=== PATIENT | male | born 1970 | race Caucasian/White ===

== ENCOUNTER 2020-10-30 10:00 | Outpatient (REF) | payer OTHER, SELFPAY ==
[2020-10-30 11:33] LABS: MANUAL DIFF FLAG NO
[2020-10-30 11:49] LABS: Glucose Urine UA NEG (NEG); Leukocyte Esterase Urine NEG (NEG); Nitrite Urine NEG (NEG); Specific Gravity - Urine >= 1.030 (1.005-1.025); Urine Blood NEG (NEG); Urine Ketones 5 MG/DL (NEG); Urine Protein NEG (NEG-TRACE)
[2020-10-30 11:49] LABS: Basophils Absolute Auto 0.1 X10*3/uL (0.0-0.2); Basophils Percent Auto 0.9 % (0-2); Eosinophils Absolute Auto 0.2 X10*3/uL (0.0-0.4); Eosinophils Percent Auto 2.8 % (0-4); Hematocrit 44.4 % (42-52); Hemoglobin 14.9 g/dl (14.0-18.0); Imm Gran Abs Auto 0.02 X10*3/uL (0.00-0.03); Imm Gran Pct Auto 0.3 % (0.0-0.4); Lymphocytes Absolute Auto 1.2 X10*3/uL (1.2-4.9); Lymphocytes Percent Auto 17.8 % (20-40); Mean Corpuscular HGB Conc 33.6 g/dl (31.0-36.0); Mean Corpuscular Hemoglobin 32.3 pg (27.0-33.0); Mean Corpuscular Volume 96.1 fL (80-98); Mean Platelet Volume 10.4 fL (9.4-12.4); Monocytes Absolute Auto 0.5 X10*3/uL (0.1-1.2); Monocytes Percent Auto 7.5 % (2-11); Neutrophils Absolute Auto 4.7 X10*3/uL (2.0-8.3); Neutrophils Percent Auto 70.7 % (45-73); Platelet Count 247 X10*3/uL (160-400); Red Blood Count 4.62 X10*6/uL (4.60-5.80); White Blood Count 6.7 X10*3/uL (4.8-10.8)
[2020-10-30 11:58] LABS: Appearance Urine CLEAR; Color Urine YELLOW
[2020-10-30 12:03] LABS: Alanine Aminotransferase 20 U/L (0-40); Albumin Level 3.9 g/dL (3.5-5.0); Alkaline Phosphatase 79 U/L (39-117); Anion Gap 15 (12-20); Aspartate Amino Transferase 19 U/L (5-37); Bilirubin Total 0.6 mg/dL (0.0-1.0); Blood Urea Nitrogen 21 mg/dL (9-16); Calcium 8.9 mg/dL (8.4-10.2); Carbon Dioxide 29 mmol/L (22-29); Chloride 99 mmol/L (96-108); Cholesterol 199 mg/dL; Estimated Glomerular Filt Rate > 60; Glucose Random 107 mg/dL (60-115); HDL Cholesterol 68 mg/dL; LDL Cholesterol Calculated 116 mg/dl; Potassium 4.7 mmol/l (3.3-5.1); Sodium 138 mmol/L (135-145); Total Protein 6.4 g/dL (6.5-8.0); Triglycerides 75 mg/dL
[2020-10-30 12:11] LABS: Prostate Specific Antigen 0.37 ng/mL (<0.05-4.0)
== END 2020-10-30 10:01 | disposition home or self-care (01) ==
LOC: HO.LAB 10:00
PROVIDERS: PCP Internal Medicine; Visit Provider Internal Medicine
DX: R59.1 Generalized enlarged lymph nodes (principal); M19.90 Unspecified osteoarthritis, unspecified site; I10 Essential (primary) hypertension
CPT/HCPCS: 36415; 80053; 80061; 81003; 84153; 85025

== ENCOUNTER 2021-11-20 10:26 | Outpatient (REF) | payer OTHER, SELFPAY ==
[2021-11-20 10:29] LABS: MANUAL DIFF FLAG NO
[2021-11-20 10:42] LABS: Basophils Absolute Auto 0.1 X10*3/uL (0.0-0.2); Basophils Percent Auto 1.2 % (0-2); Eosinophils Absolute Auto 0.2 X10*3/uL (0.0-0.4); Eosinophils Percent Auto 2.7 % (0-4); Hematocrit 47.8 % (42.0-52.0); Hemoglobin 15.6 g/dl (14.0-18.0); Imm Gran Abs Auto 0.02 X10*3/uL (0.00-0.03); Imm Gran Pct Auto 0.2 % (0.0-0.4); Lymphocytes Absolute Auto 2.4 X10*3/uL (1.2-4.9); Lymphocytes Percent Auto 27.6 % (20-40); Mean Corpuscular HGB Conc 32.6 g/dl (31.0-36.0); Mean Corpuscular Hemoglobin 31.2 pg (27.0-33.0); Mean Corpuscular Volume 95.6 fL (80.0-98.0); Mean Platelet Volume 10.7 fL (9.4-12.4); Monocytes Absolute Auto 0.8 X10*3/uL (0.1-1.2); Monocytes Percent Auto 8.9 % (2-11); Neutrophils Absolute Auto 5.1 x10*3/uL (2.0-8.3); Neutrophils Percent Auto 59.4 % (45-73); Platelet Count 247 X10*3/uL (160-400); Red Cell Distribution Width 12.8 % (11.0-16.0); White Blood Count 8.6 X10*3/uL (4.8-10.8)
[2021-11-20 10:43] LABS: Appearance Urine HAZY; Color Urine YELLOW; Glucose Urine UA NEG (NEG); Leukocyte Esterase Urine NEG (NEG); Nitrite Urine NEG (NEG); PH 6.5 (5.0-8.0); Specific Gravity - Urine 1.025 (1.005-1.025); Urine Blood NEG (NEG); Urine Ketones NEG (NEG); Urine Protein NEG (NEG-TRACE)
[2021-11-20 11:46] LABS: Alanine Aminotransferase 23 U/L (0-40); Albumin Level 3.8 g/dL (3.5-5.0); Alkaline Phosphatase 81 U/L (39-117); Anion Gap 11 (12-20); Aspartate Amino Transferase 24 U/L (5-37); Bilirubin Total 0.7 mg/dL (0.0-1.0); Blood Urea Nitrogen 19 mg/dL (9-16); Calcium 9.3 mg/dL (8.4-10.2); Carbon Dioxide 29 mmol/L (22-29); Chloride 102 mmol/L (96-108); Cholesterol 204 mg/dL; Estimated Glomerular Filt Rate > 60; Glucose Fasting 98 mg/dL (60-99); HDL Cholesterol 61 mg/dL; LDL Cholesterol Calculated 112 mg/dl; Potassium 3.9 mmol/L (3.3-5.1); Sodium 138 mmol/L (135-145); Total Protein 6.3 g/dL (6.5-8.0); Triglycerides 159 mg/dL
[2021-11-20 11:54] LABS: PSA,Total (Free>4and<10) 0.41 ng/mL (0.00-4.00)
== END 2021-11-20 10:27 | disposition home or self-care (01) ==
LOC: HO.LNP 10:26
PROVIDERS: Visit Provider Internal Medicine
DX: Z00.00 Encounter for general adult medical examination without abnormal findings (principal); Z12.5 Encounter for screening for malignant neoplasm of prostate; I10 Essential (primary) hypertension
CPT/HCPCS: 80053; 80061; 81003; 84153; 85025

== ENCOUNTER 2022-09-13 11:26 | Outpatient (REF) | payer OTHER, SELFPAY ==
[2022-09-13 11:29] LABS: MANUAL DIFF FLAG NO
[2022-09-13 11:57] LABS: Appearance Urine Cloudy; Color Urine Yellow; Glucose Urine UA Negative (Negative); Leukocyte Esterase Urine Negative (Negative); Nitrite Urine Negative (Negative); PH 7.5 (5.0-9.0); Urine Blood Negative (Negative); Urine Ketones Negative (Negative); Urine Protein Negative (Neg-Trace)
[2022-09-13 11:59] LABS: Basophils Absolute Auto 0.1 X10*3/uL (0.0-0.2); Basophils Percent Auto 1.4 % (0-2); Eosinophils Absolute Auto 0.3 X10*3/uL (0.0-0.4); Eosinophils Percent Auto 3.2 % (0-4); Hemoglobin 16.1 g/dl (14.0-18.0); Imm Gran Abs Auto 0.03 X10*3/uL (0.00-0.03); Imm Gran Pct Auto 0.4 % (0.0-0.4); Lymphocytes Absolute Auto 2.1 X10*3/uL (1.2-4.9); Lymphocytes Percent Auto 25.5 % (20-40); Mean Corpuscular HGB Conc 33.5 g/dl (31.0-36.0); Mean Corpuscular Hemoglobin 31.8 pg (27.0-33.0); Mean Corpuscular Volume 94.9 fL (80.0-98.0); Mean Platelet Volume 10.7 fL (9.4-12.4); Monocytes Absolute Auto 0.9 X10*3/uL (0.1-1.2); Monocytes Percent Auto 11.2 % (2-11); Neutrophils Absolute Auto 4.7 x10*3/uL (2.0-8.3); Neutrophils Percent Auto 58.3 % (45-73); Platelet Count 278 X10*3/uL (160-400); Red Blood Count 5.06 X10*6/uL (4.60-5.80); Red Cell Distribution Width 12.8 % (11.0-16.0); White Blood Count 8.1 X10*3/uL (4.8-10.8)
[2022-09-13 12:08] LABS: Bacteria Urine None Seen (None Seen); Hyaline Casts Urine 0-2 /LPF (0-2); RBC Urine 0-2 /HPF (0-2); Squamous Epithelial Cell Urine 0-2 /HPF (0-2); WBC Urine 0-5 /HPF (0-5)
[2022-09-13 12:16] LABS: Alanine Aminotransferase 19 U/L (0-40); Albumin Level 3.9 g/dL (3.5-5.0); Alkaline Phosphatase 81 U/L (39-117); Anion Gap 18 (12-20); Aspartate Amino Transferase 20 U/L (5-37); Bilirubin Total 0.5 mg/dL (0.0-1.0); Blood Urea Nitrogen 23 mg/dL (9-16); Calcium 9.2 mg/dL (8.4-10.2); Carbon Dioxide 27 mmol/L (22-29); Chloride 98 mmol/L (96-108); Cholesterol 201 mg/dL; Estimated Glomerular Filt Rate > 60; Glucose Fasting 108 mg/dL (60-99); HDL Cholesterol 61 mg/dL; LDL Cholesterol Calculated 124 mg/dl; Potassium 4.6 mmol/L (3.3-5.1); Sodium 138 mmol/L (135-145); Total Protein 6.5 g/dL (6.5-8.0); Triglycerides 82 mg/dL
[2022-09-13 12:31] LABS: PSA,Total (Free>4and<10) 0.29 ng/mL (0.00-4.00)
== END 2022-09-13 11:27 | disposition home or self-care (01) ==
LOC: HO.LNP 11:26
PROVIDERS: Visit Provider Internal Medicine
DX: Z00.00 Encounter for general adult medical examination without abnormal findings (principal); I10 Essential (primary) hypertension; Z12.5 Encounter for screening for malignant neoplasm of prostate
CPT/HCPCS: 80053; 80061; 81001; 84153; 85025

== ENCOUNTER 2023-09-19 11:47 | Outpatient (REF) | payer OTHER, SELFPAY ==
[2023-09-19 11:50] LABS: MANUAL DIFF FLAG NO
[2023-09-19 11:55] LABS: Appearance Urine Clear; Color Urine Yellow; Glucose Urine UA Negative (Negative); Leukocyte Esterase Urine Negative (Negative); Nitrite Urine Negative (Negative); Specific Gravity - Urine 1.015 (1.005-1.025); Urine Blood Negative (Negative); Urine Ketones Negative (Negative); Urine Protein Negative (Neg-Trace)
[2023-09-19 11:58] LABS: Bacteria Urine None Seen (None Seen); Hyaline Casts Urine 0-2 /LPF (0-2); RBC Urine 0-2 /HPF (0-2); Squamous Epithelial Cell Urine 0-2 /HPF (0-2); WBC Urine 0-5 /HPF (0-5)
[2023-09-19 12:13] LABS: Basophils Absolute Auto 0.1 X10*3/uL (0.0-0.2); Basophils Percent Auto 1.1 % (0-2); Eosinophils Absolute Auto 0.2 X10*3/uL (0.0-0.4); Eosinophils Percent Auto 2.7 % (0-4); Hematocrit 45.4 % (42.0-52.0); Hemoglobin 14.9 g/dl (14.0-18.0); Imm Gran Abs Auto 0.02 X10*3/uL (0.00-0.03); Imm Gran Pct Auto 0.2 % (0.0-0.4); Lymphocytes Absolute Auto 1.9 X10*3/uL (1.2-4.9); Lymphocytes Percent Auto 21.3 % (20-40); Mean Corpuscular HGB Conc 32.8 g/dl (31.0-36.0); Mean Corpuscular Hemoglobin 31.8 pg (27.0-33.0); Mean Platelet Volume 10.2 fL (9.4-12.4); Monocytes Absolute Auto 0.8 X10*3/uL (0.1-1.2); Monocytes Percent Auto 8.7 % (2-11); Platelet Count 290 X10*3/uL (160-400); Red Blood Count 4.68 X10*6/uL (4.60-5.80); Red Cell Distribution Width 13.2 % (11.0-16.0)
[2023-09-19 14:42] LABS: PSA,Total (Free>4and<10) 0.49 ng/mL (0.00-4.00)
[2023-09-19 14:47] LABS: Alanine Aminotransferase 11 U/L (0-40); Albumin Level 3.9 g/dL (3.5-5.0); Alkaline Phosphatase 78 U/L (39-117); Anion Gap 16 (12-20); Aspartate Amino Transferase 18 U/L (5-37); Bilirubin Total 0.4 mg/dL (0.0-1.0); Blood Urea Nitrogen 22 mg/dL (9-16); Carbon Dioxide 27 mmol/L (22-29); Chloride 99 mmol/L (96-108); Cholesterol 191 mg/dL (<200); Estimated Glomerular Filt Rate > 60; Glucose Fasting 106 mg/dL (60-99); HDL Cholesterol 65 mg/dL (>40); LDL Cholesterol Calculated 110 mg/dL (<100); Potassium 4.5 mmol/L (3.3-5.1); Sodium 137 mmol/L (135-145); Total Protein 6.7 g/dL (6.5-8.0); Triglycerides 81 mg/dL (<150)
== END 2023-09-19 11:48 | disposition home or self-care (01) ==
LOC: HO.LNP 11:47
PROVIDERS: Visit Provider Internal Medicine
DX: Z00.00 Encounter for general adult medical examination without abnormal findings (principal); Z12.5 Encounter for screening for malignant neoplasm of prostate; I10 Essential (primary) hypertension
CPT/HCPCS: 80053; 80061; 81001; 84153; 85025

== ENCOUNTER 2024-09-23 11:27 | Outpatient (REF) | payer OTHER, SELFPAY ==
[2024-09-23 11:32] LABS: MANUAL DIFF FLAG NO
[2024-09-23 12:00] LABS: Appearance Urine Clear; Color Urine Yellow; Glucose Urine UA Negative (Negative); Leukocyte Esterase Urine Negative (Negative); Nitrite Urine Negative (Negative); Urine Blood Negative (Negative); Urine Ketones Negative (Negative); Urine Protein Negative (Neg-Trace)
[2024-09-23 12:02] LABS: Basophils Absolute Auto 0.1 X10*3/uL (0.0-0.2); Basophils Percent Auto 1.6 % (0-2); Eosinophils Absolute Auto 0.3 X10*3/uL (0.0-0.4); Eosinophils Percent Auto 4.2 % (0-4); Hematocrit 45.9 % (42.0-52.0); Hemoglobin 15.2 g/dl (14.0-18.0); Imm Gran Abs Auto 0.02 X10*3/uL (0.00-0.03); Imm Gran Pct Auto 0.3 % (0.0-0.4); Lymphocytes Absolute Auto 1.9 X10*3/uL (1.2-4.9); Lymphocytes Percent Auto 25.6 % (20-40); Mean Corpuscular HGB Conc 33.1 g/dl (31.0-36.0); Mean Corpuscular Hemoglobin 32.3 pg (27.0-33.0); Mean Corpuscular Volume 97.5 fL (80.0-98.0); Mean Platelet Volume 10.4 fL (9.4-12.4); Monocytes Absolute Auto 0.7 X10*3/uL (0.1-1.2); Monocytes Percent Auto 9.7 % (2-11); Neutrophils Absolute Auto 4.3 x10*3/uL (2.0-8.3); Neutrophils Percent Auto 58.6 % (45-73); Platelet Count 259 X10*3/uL (160-400); Red Blood Count 4.71 X10*6/uL (4.60-5.80); Red Cell Distribution Width 13.1 % (11.0-16.0); White Blood Count 7.4 X10*3/uL (4.8-10.8)
[2024-09-23 12:04] LABS: Bacteria Urine None Seen (None Seen); Hyaline Casts Urine 0-2 /LPF (0-2); RBC Urine 0-2 /HPF (0-2); Squamous Epithelial Cell Urine 0-2 /HPF (0-2); WBC Urine 0-5 /HPF (0-5)
[2024-09-23 12:14] LABS: Alanine Aminotransferase 21 U/L (0-40); Albumin Level 3.8 g/dL (3.5-5.0); Alkaline Phosphatase 79 U/L (39-117); Anion Gap 12 (12-20); Aspartate Amino Transferase 32 U/L (5-37); Bilirubin Total 0.3 mg/dL (0.0-1.0); Blood Urea Nitrogen 28 mg/dL (9-16); Calcium 9.8 mg/dL (8.4-10.2); Carbon Dioxide 29 mmol/L (22-29); Chloride 102 mmol/L (96-108); Cholesterol 183 mg/dL (<200); Estimated Glomerular Filt Rate 54; Glucose Fasting 96 mg/dL (60-99); HDL Cholesterol 64 mg/dL (>40); LDL Cholesterol Calculated 99 mg/dL (<100); Potassium 4.8 mmol/L (3.3-5.1); Sodium 138 mmol/L (135-145); Total Protein 6.8 g/dL (6.5-8.0); Triglycerides 102 mg/dL (<150)
== END 2024-09-23 11:28 | disposition home or self-care (01) ==
LOC: HO.LNP 11:27
PROVIDERS: Visit Provider Internal Medicine
DX: Z00.00 Encounter for general adult medical examination without abnormal findings (principal); I10 Essential (primary) hypertension; Z12.5 Encounter for screening for malignant neoplasm of prostate
CPT/HCPCS: 80053; 80061; 81001; 84153; 85025

== ENCOUNTER 2025-04-12 07:47 | Outpatient (REF) | payer OTHER, SELFPAY ==
[2025-04-12 12:28] LABS: Cholesterol 206 mg/dL (<200); HDL Cholesterol 63 mg/dL (>40); LDL Cholesterol Calculated 120 mg/dL (<100); Triglycerides 118 mg/dL (<150)
--- OUTSIDE RECORDS SUMMARY | 2025-04-12 12:52 | XMS_ITS ---
Author Organization Arnaud Lynn MD Address [address] [place], [place] [phone] Care Team Providers Care Health Management Consultant Name Role Phone Arnaud Lynn Primary Care Provider [phone] Results Component Value Reference Range Notes Complete Blood Count Auto Di ff Reviewed date:09/23/2024 12:37:52 PM Interpretation: Performing Lab:[facility], [address] [place] [phone] Notes/Report: White Blood Count 7.4 4.8-10.8 X10*3/uL [...] NRBC Abs Auto 0.000 0.0-0.012 X10*3/uL Comprehensive [place]. Panel Fa st Reviewed date:09/23/2024 03:37:24 PM Interpretation: Performing Lab:[facility], [address] [place] [phone] Notes/Report: Sodium 138 135-145 mmol/L Potassium 4.8 3.3-5.1 mmol/L Chloride 102 96-108 mmol/L Carbon Dioxide 29 22-29 mmol/L Anion Gap 12 12-20 Blood Urea Nitrogen 28 9-16 mg/dL Creatinine 1.37 0.5-1.4 mg/dL Estimated Glomerular Filt Rate 54 NOTE: For -[place]ib[place] individuals, multiply the result by 1.210. Chronic [...] Panel Reviewed date:09/23/2024 12:33:05 PM Interpretation: Performing Lab:[address] [phone] Notes/Report: Triglycerides 102 <150 mg/dL Desirable Triglyceride: [...] (Free>4and<10) Reviewed date:09/23/2024 02:26:33 PM Interpretation: Performing Lab:[address] [phone] Notes/Report: PSA,Total (Free>4and<10) 0.50 0.00-4.00 ng/mL A [...] t Reviewed date:09/23/2024 12:33:26 PM Interpretation: Performing Lab:[address] [phone] Notes/Report: [id number] Urine, Clean Catch Color Urine Yellow Appearance Urine Clear PH 8.0 5.0-9.0 Glucose Urine UA Negative Negative mg/dL Urine Blood Negative Negative Specific [place] - Urine 1.010 1.005-1.025 Urine Protein Negative [...] Location Date Provider Diagnosis Arnaud Lynn MD [address] [place] [phone] 09/23/2024 Arnaud Lynn Blood tests for routine [...] Of Treatment Next Appt Details Provider Name:Arnaud storey, 04/19/2025 11:15:00 AM, [address] [place] [address], [phone], Provider Name:Arnaud storey, 10/18/2025 07:30:00 AM, [address] [place] [address], [phone], Provider Name:Arnaud storey, 10/27/2025 09:30:00 AM, [address] [place] [address], [phone], Progress Notes * Portillo VALLADARES ADOB: 8 (54 yo M)Acc No.[id number]:09/23/2024 Progress Note Patient:?WODECKI, Portillo A Provider:?Arnaud Lynn MD :1970???Age:54 Y???Sex:Male Iam e:09/23/2024 Address:[id number] Subjective: * Chief Complaints: * ???1. FASTING LABS. * Medical History:? Objective: * Vitals:? Assessment: * Assessment: 1.?Blood tests for routine g eneral physical examination - Z00.00 (Primary)???2.?Encounter for immunization - Z23???3.?Essential hypertension - I10??? Plan: * Treatment: 2.?Essential hypertension?LAB: Complete Blood Count Auto Diff (Collection Date & Time - 09/23/2024 07:15 AM) ?LAB: Comprehensive [place]. Panel Fast (Collection Date & Time - 09/23/2024 07:15 AM) ?LAB: Lipid Panel (Collection Date & Time - 09/23/2024 07:15 AM) ?LAB: PSA,Total (Free>4and<10) (Collection Date & Time - 09/23/2024 07:15 AM) ?LAB: UA ClnCatch+Micro w/rflx Cult (Collection Date & Time - 09/23/2024 07:15 AM) * Immunizations:? Fluarix Quadrivalent - 150 : 0.5 mL (Dose No:1) (Route: Intramuscular) given by Shantelle Walters , Office Staff on Left Deltoid * Procedure Codes:?47835 FLU V ACCINE NO PRESERV 3 & >, 79137 IMMUNIZATION ADMIN, 20712 VENIPUNCT, ROUTINE* * * The named appointment provid er may or may not be the originator of this progress note, and it is not deemed complete until electronically signed by the appointment provider. Sign off status: Pending * Provider:?Arnaud Lynn MD Date:?1 Generated for Aracelisi ng/Fadickg/eTransmitting on:?04/12/2025 12:52 PM EDT
--- OUTSIDE RECORDS SUMMARY | 2025-04-12 12:52 | XMS_ITS ---
Author Organization Arnaud Lynn MD Address [address] [place] [phone] Care Team Providers Care Terrazzo Helper Name Role Phone Arnaud Lynn Primary Care [...] Location Date Provider Diagnosis Arnaud Lynn MD [address] [place] [address] [address] [place], [place] [phone] 10/19/2024 Arnaud Lynn Essential hypertensi on I10 [...] Follow Up: 6 Months, Reason: Provider Name:Arnaud storey, 04/19/2025 11:15:00 AM, [address] [place] [address], Suite [facility], [place], [place], [phone], Provider Name:Arnaud arrietar, 10/18/2025 07:30:00 AM, [address] [place] [address], [address], [place], [place], [phone], Provider Name:Arnaud Dela Cruz ier, 10/27/2025 09:30:00 AM, [address] [place] [address], [address], [place], [place], [phone], Progress Notes * Portillo VALLADARES ADOB: [birth year] (54 yo M)Acc No.[id number]:10/19/2024 Progress Notes Patient:?Portillo Valladares A Provider:?Arnaud Lynn MD :1970???Age:54 Y???Sex:Male Iam e:10/19/2024 Address: [address] [place], [id number] Subjective: * Chief Complaints: * ???ANNUAL EXAM * HPI: ???Depression Screening:?PHQ-9?Little interest or pleasure in doing things?Not at all,?Feeling down, depressed, or hopeless?Not at all,?Trouble falling or staying asleep, or sleeping too much?Not at all,?Feeling tired or having little energy?Not at all,?Poor appetite or overeating?Not at all,?Feeling bad about yourself or that you are a failure, or have let yourself or your family down?Not at all,?Trouble concentrating on things, such as reading the newspaper or watching television?Not at all,?Moving or speaking so slowly that other people could have noticed; or the opposite, being so fidgety or restless that you have been moving around a lot more than usual?Not at all,?Thoughts that you would be better off or of hurting yourself in some way?Not at all,?Total Score?0.?Interpretation and Intervention?Depression Screening Findings?Negative,?Follow-Up for Depression?: review of PHQ-9 found negative result, no follow-up needed.?Communication Needs:?Communication Needs?Does the patient have a hearing impairment?No,?Does the patient have a vision impairment??Yes,?If yes, what is the vision impairment??Glasses,?Does the patient have a cognition impairment??No.?SDOH Questions:?SDOH Questions?In the past year have you been worried about losing housing??No,?In the past year have you or any family members you live with been unable to get any of the following when it was really needed? Check all that apply:?None.?Symptom(s):? patient is a 54 yo male here for annual visit with review of recent labs and follow up of chronic issues. had a cold couple weeks ago. is better now. * ROS:?General/Constitutional:?Patient denies?fatigue , headache.?Change in appetite?denies.?Chills?denies.?Fever?denies.?Ophthalmologic:?Blurred vision?denies.?Discharge?denies.?Pain?denies.?ENT:?Patient denies?decreased sense of smell , any loss of taste , sore throat.?Decreased hearing?denies.?Sore throat?denies.?Swollen glands?denies.?Endocrine:?Cold intolerance?denies.?Excessive thirst?denies.?Heat intolerance?denies.?Weight loss?denies.?Respiratory:?Cough?denies.?Shortness of breath at rest?denies.?Shortness of breath with exertion?denies.?Wheezing?denies.?Cardiovascular:?Chest pain at rest?denies.?Chest pain with exertion?denies.?Irregular heartbeat?denies.?Shortness of breath?denies.?Gastrointestinal:?Abdominal pain?denies.?Change in bowel habits?denies.?Diarrhea?denies.?Nausea?denies.?Rectal bleeding?denies.?Vomiting?denies .?Genitourinary:?Blood in urine?denies.?Difficulty urinating?denies.?Frequent urination?denies.?Musculoskeletal:?Patient denies?muscle aches.?Painful joints?denies.?Weakness?denies.?Peripheral Vascular:?Patient denies?red and blue toes.?Skin:?Dry skin?denies.?Itching?denies.?Denies?Mole(s),? changes in moles, new moles or any lesions of concern.?Denies?Photosensitivity.?Rash?denies.?Neurologic:?Dizziness?denies.?Fainting?denies.?Headache?denies.? * Medical History:? * Surgical History:? * Hospitalization/Major Diagno stic Procedure:? * Family History:?Father: rosario ruiz 75 yrs, Healthy.?Mother: alive 75 yrs, Healthy.?1 brother(s) , 1 sister(s) . .? Father- Healthy Mother- Healthy, Denies mental health/substance abuse family history, Denies mental health/substance abuse family history, No pertinent family medical history. * Social History:?Tobacco Use:?Tobacco Use/Smoking?Patient is a?former smoker,?How long has it been since you last smoked??5-10 years,?Additional Findings: Tobacco Non-User?Former smoker, currently using no form of tobacco.?Drugs/Alcohol:?Alcohol Screen?Did you have a drink containing alcohol in the past year??Yes,?How often did you have a drink containing alcohol in the past year??2 to 4 times a month (2 points),?How many drinks did you have on a typical day when you were drinking in the past year??1 or 2 drinks (0 point),?How often did you have 6 or more drinks on one occasion in the past year??Never (0 point),?Points?2,?Interpretation?Negative.?Miscellaneous:?Caffeine: yes, frequency:, 3-4 cups per day. no Children. Community involvements: yes. Exercise: yes, golf in the summer. Home smoke detector use: yes. Housing: living with relatives. Living with: family. Occupation: weeks/months/years, works full-time. Pets: none. no Travel outside of the [place]. * Medications:?TakingLisinopri l-hydroCHLOROthiazide 20-25 MG Tablet TAKE 1 TABLET BY [...] reviewed and reconciled with the patient * Allergies:?N.K.D.A.yes[Aller gies Verified] Objective: * Vitals:?Ht: 72, Wt:324, BMI: 43.94, BP:120/82. * ???Past Orders: ???Lab:Lipid Panel (Order Da te - 09/23/2024) (Collection Date - 09/23/2024) ? Value Reference Range ?Triglycerides 102 <150 - mg/dL ?Cholesterol 183 <200 - m g/dL ?LDL Cholesterol Calculated 99 <100 - mg/dL ?HDL Cholesterol 64 >40 - mg/dL ???Lab:PSA,Total (Free>4and< 10) (Order Date - 09/23/2024) (Collection Date - 09/23/2024) ? Value Reference Range ?PSA,Total (Free>4and<10) 0.50 0.00-4.00 - ng/mL ???Lab:UA ClnCatch+Micro w/r flx Cult (Order Date - 09/23/2024) (Collection Date - 09/23/2024) ? Value Reference Range ?Color Urine Yellow - ?Appearance Urine Clear - ?PH 8.0 5.0-9.0 - ?Glucose Urine UA Negative Neg ative - mg/dL ?Urine Blood Negative Negative - ?Specific Startex - Urine 1.010 1.005-1.025 - ?Urine Protein Negative Neg-Tr carley - mg/dL ?Urine Ketones Negative Negati ve - mg/dL ?Nitrite Urine Negative Negati ve - ?Leukocyte Esterase Urine Negative Negative - ?RBC Urine 0-2 0-2 - /HPF ?WBC Urine 0-5 0-5 - /HPF ?Squamous Epithelial Cell Urine 0-2 0-2 - /HPF ?Bacteria Urine None Seen None Seen - ?Hyaline Casts Urine 0-2 0-2 - /LPF ???Lab:Complete Blood Count Auto Diff (Order Date - 09/23/2024) (Collection Date - 09/23/2024) ? Value Reference Range ?White Blood Count 7.4 4. 8-10.8 - X10*3/uL ?Red Blood Count 4.71 4.60 -5.80 - X10*6/uL ?Hemoglobin 15.2 14.0-18.0 - g/dl ?Hematocrit 45.9 42.0-52.0 - % ?Mean Corpuscular Volume 97.5 80.0-98.0 - fL ?Mean Corpuscular Hemoglobin 32.3 27.0-33.0 - pg ?Mean Corpuscular HGB Conc 33.1 31.0-36.0 - g/dl ?Red Cell Distribution Width 13.1 11.0-16.0 - % ?Platelet Count 259 160-4 00 - X10*3/uL ?Mean Platelet Volume 10.4 9.4-12.4 - fL ?Neutrophils Percent Auto 58.6 45-73 - % ?Imm Gran Pct Auto 0.3 0. 0-0.4 - % ?Lymphocytes Percent Auto 25.6 20-40 - % ?Monocytes Percent Auto 9.7 2-11 - % ?Eosinophils Percent Auto 4.2 H 0-4 - % ?Basophils Percent Auto 1.6 0-2 - % ?NRBC Pct Auto 0.0 0.0-0. 2 - /100WBC ?Neutrophils Absolute Auto 4.3 2.0-8.3 - x10*3/uL ?Imm Gran Abs Auto 0.02 0. 00-0.03 - X10*3/uL ?Lymphocytes Absolute Auto 1.9 1.2-4.9 - X10*3/uL ?Monocytes Absolute Auto 0.7 0.1-1.2 - X10*3/uL ?Eosinophils Absolute Auto 0.3 0.0-0.4 - X10*3/uL ?Basophils Absolute Auto 0.1 0.0-0.2 - X10*3/uL ?NRBC Abs Auto 0.000 0.0-0. 012 - X10*3/uL ???Lab:Comprehensive [place]. P susanna Fast (Order Date - 09/23/2024) (Collection Date - 09/23/2024) ? Value Reference Range ?Sodium 138 135-145 - mmo l/L ?Bilirubin Total 0.3 0.0- 1.0 - mg/dL ?Aspartate Amino Transferase 32 5-37 - U/L ?Alanine Aminotransferase 21 0-40 - U/L ?Total Protein 6.8 6.5-8. 0 - g/dL ?Albumin Level 3.8 3.5-5. 0 - g/dL ?Alkaline Phosphatase 79 39-117 - U/L ?Potassium 4.8 3.3-5.1 - mmol/L ?Chloride 102 96-108 - mm ol/L ?Carbon Dioxide 29 22-29 - mmol/L ?Anion Gap 12 12-20 - ?Blood Urea Nitrogen 28 H 9-16 - mg/dL ?Creatinine 1.37 0.5-1.4 - mg/dL ?Estimated Glomerular Filt Rate 54 - ?Glucose Fasting 96 60-9 9 - mg/dL ?Calcium 9.8 8.4-10.2 - m g/dL * Examination: ???General Examination: ?GENERAL APPEARANCE:?well developed, well nourished, in no acute distress.?HEAD:?normocephalic, atraumatic.?EYES:?pupils equal, round, reactive to light and accommodation, sclera non-icteric.?EARS:?normal.?ORAL CAVITY:?mucosa moist.?THROAT:?clear.?NECK/THYROID:?neck supple, full range of motion, no cervical lymphadenopathy, no bruits.?SKIN:?warm and dry, no suspicious lesions.?HEART:?regular rate and rhythm, S1, S2 normal, no murmurs.?LUNGS:?clear to auscultation bilaterally/ has diffuse wheezing.?ABDOMEN:?soft, nontender, nondistended, bowel sounds present, normal, no organomegaly , no masses palpable.?RECTAL EXAM:?normal tone, no external hemorrhoids, no masses palpable, prostate normal, stool guaiac negative.?MALE GENITOURINARY:?uncircumcised , no testicular mass , testes descended bilaterally.?EXTREMITIES:?no clubbing, cyanosis, or edema.?NEUROLOGIC:?nonfocal, motor strength normal upper and lower extremities, sensory exam intact.? Assessment: * Assessment: 1.?Annual physical exam - Z0 0.00 (Primary)?2.?Essential hypertension - I10?3.?BMI 45.0-49.9, adult - Z68.42?4.?Fasciculations of muscle - R25.3?5.?Hip pain, left - M25.552?6.?Wheezing - R06.2?7.?Colon cancer screening - Z12.11?8. Depression screening - Z13.31? Plan: * Treatment: 2.?Essential hypertension? Continue Lisinopril-hydroCHLOROthiazide Tablet, 20-25 MG, TAKE 1 TABLET BY MOUTH EVERY DAY FOR 90 DAYS;?Continue amLODIPine Besylate Tablet, 5 MG, TAKE 1 TABLET BY MOUTH EVERY DAY FOR 30 DAYS.?? Notes: well controlled/ order given to patient, will continue current regiment?? 3.?BMI 45.0-49.9, adult? Notes: not dieting, advised to diet?? 4.?Fasciculations of muscle? Notes: has resolved after surgery?? 5.?Hip pain, left?Imaging: XR hip LT min 2V Notes: pending diagnostic testing?? 6.?Wheezing? Notes: doesn't want an inhaler at present?? 7.?Colon cancer screening?LAB: Occult Blood, Stool, Guaiac?Negative ? Value Reference Range ?Occult Blood, Stool, Guaiac Neg Notes: guaiac negative??8.?Depression screening? Notes: negative screen?? * Procedure Codes:?29343 TEST FOR BLOOD, FECES * Preventive Medicine:? ??Counseling:?Care goal follow-up plan:?Counseling for abnormal BMI provided?Yes,?Above Normal BMI Follow-up?Giving encouragement to exercise.? * Follow Up:?6 Months * * Sign off status: Completed true * Provider:?Arnaud Lynn MD Date:?1 12/19/2023 Generated for Beth santos/Cl/Chucksmitting on:?04/12/2025 12:52 PM EDT History and Physical Notes * HPI (History [...] patient have a vision impairmen t?: Yes ?If yes, what is the vision impairment?: Glasses Does the patient have a cognition impair ment?: No Examination Category Sub-Category Detail Notes Category Not es General Examination GENERAL APPEARANCE: well dev eloped, well nourished, in no acute distress HEAD: normocephalic, atrau matic EYES: pupils equal, round, reactive to light and accommodation, sclera non- icteric EARS: normal THROAT: clear NECK/THYROID: neck supple, [...]
--- OUTSIDE RECORDS SUMMARY | 2025-04-12 12:53 | XMS_ITS | Patient Health Record ---
Author Organization Arnaud Lynn MD Address [address] [place] [phone] Care Team Providers Care Rn Postpartum Name Role Phone Arnaud Lynn Primary Care Provider Allergies No Known Allergies Results Component Value Reference Range Notes Complete Blood Count Auto Di ff Reviewed date:09/23/2024 12:37:52 PM Interpretation: Performing Lab:[facility], [address] [place] [phone] Notes/Report: White Blood Count 7.4 4.8-10.8 X10*3/uL [...] NRBC Abs Auto 0.000 0.0-0.012 X10*3/uL Comprehensive [place]. Panel Fa st Reviewed date:09/23/2024 03:37:24 PM Interpretation: Performing Lab:[facility], [address] [place] [id number] Notes/Report: Sodium 138 135-145 mmol/L Potassium 4.8 3.3-5.1 mmol/L Chloride 102 96-108 mmol/L Carbon Dioxide 29 22-29 mmol/L Anion Gap 12 12-20 Blood Urea Nitrogen 28 9-16 mg/dL Creatinine 1.37 0.5-1.4 mg/dL Estimated Glomerular Filt Rate 54 NOTE: For -Faroese individuals, multiply the result by 1.210. Chronic [...] Panel Reviewed date:09/23/2024 12:33:05 PM Interpretation: Performing Lab:[address] [phone] Notes/Report: Triglycerides 102 <150 mg/dL Desirable Triglyceride: [...] (Free>4and<10) Reviewed date:09/23/2024 02:26:33 PM Interpretation: Performing Lab:[address] [phone] Notes/Report: PSA,Total (Free>4and<10) 0.50 0.00-4.00 ng/mL A [...] t Reviewed date:09/23/2024 12:33:26 PM Interpretation: Performing Lab:[address] [phone] Notes/Report: [id number] Urine, Clean Catch Color Urine Yellow Appearance Urine Clear PH 8.0 5.0-9.0 Glucose Urine UA Negative Negative mg/dL Urine Blood Negative Negative Specific [place] - Urine 1.010 1.005-1.025 Urine Protein Negative Neg-Trace mg/dL Urine Ketones Negative Negative mg/dL Nitrite Urine Negative Negative Leukocyte Esterase Urine Negative Negative RBC Urine 0-2 0-2 /HPF WBC Urine 0-5 0-5 /HPF Squamous Epithelial Cell Urine 0-2 0-2 /HPF Bacteria Urine None Seen None Seen Hyaline Casts Urine 0-2 0-2 /LPF Occult Blood, Stool, Guaiac Reviewed date:10/19/2024 12:30:48 PM Interpretation:Negative Performing Lab: Notes/Report: Negative Occult Blood, Stool, Guaiac Neg Reason For Referral No Information Medications Medication SIG (Take, Route, Frequency, Duration) Notes Start Date End Date Status amLODIPine Besylate 5 MG TAKE 1 TABLET B Y MOUTH EVERY DAY FOR 30 DAYS for 90 Active Lisinopril-hydroCHLOROthia zide 20-25 MG TAKE 1 TABLET BY MOUTH EVERY DAY for 90 Active Immunizations Vaccine Route Administration Date Status Comme nts DECLINED, FLU Unknown 12/06/2012 Administered DECLINED, FLU Unknown 08/05/2013 Administered TDaP IM Intramuscular 01/02/2018 Administered Fluarix Quadrivalent IM Intramuscular 10/20/2018 Administe red Fluarix Quadrivalent IM Intramuscular 11/01/2019 Administe red Tetanus Unknown 01/02/2018 Administered SARS-COV-2 Pfizer Unknown 02/27/2021 Administered SARS-COV-2 Pfizer Unknown 03/20/2021 Administered Fluarix Quadrivalent IM Intramuscular 08/14/2021 Administe red SARS-COV-2 Pfizer Unknown 09/28/2021 Administered [facility] Fluarix Quadrivalent IM Intramuscular 09/13/2022 Administe red Fluarix Quadrivalent IM Intramuscular 09/19/2023 Administe red Fluarix Quadrivalent - 150 IM Intramuscular 09/23/2024 Adm inistered DECLINED, FLU Unknown 08/22/2014 Refused Flu Vaccine Unknown 09/12/2015 Refused Fluarix Quadrivalent Unknown 09/16/2016 Refused Fluarix Quadrivalent Unknown 10/13/2017 Refused Tetanus Unknown 01/02/2018 Pending Social History Tobacco Use: Social History Observation [...] Never (0 point) Points 2 Interpretation Negative Problems Problem Type SNOMED Code ICD Code Onset Dates Problem Status W/U Status Risk Notes Problem 08897245 Essential hypertension (I10) Active confirmed Problem 852275851616 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) Active confirmed Problem 42023157 Arthritis of right hip (M19.90) Active confirmed Problem 715641773 BMI 45.0-49.9, adult (Z68.42) Active confirmed Problem 3060012553447966 Arthritis of saran th knees (M17.0) Active confirmed Problem 71617291 Fasciculations o f muscle (R25.3) Active confirmed Vital Signs Blood pressure diastolic 82 mm Hg 10/19/2024 Height 72 in 10/19/2024 Blood pressure systolic 120 mm Hg 10/19/2024 Weight 324 lbs 10/19/2024 BMI 43.94 kg/m2 10/19/2024 Encounters Encounter Location Date Provider Diagnosis Arnaud Lynn MD [address] [place] [phone] 09/23/2024 Arnaud Lynn Blood tests for routine general physical examination Z00.00 ; Encounter for immunization Z23 and Essential hypertension I10 Arnaud Lynn MD [address] [place] [address] [address] [place] [phone] 04/12/2025 Arnaud Lynn Essential hypertensi on I10 Arnaud Lynn MD [address] [place] [address] Drive [address] [place] [phone] 10/19/2024 Arnaud Lynn Essential hypertensi on I10 [...] 09/23/2024 Encounter for immunization (ICD-10 - Z23) 04/12/2025 Essential hypertension (ICD-10 - I10) 10/19/2024 Essential hypertension (ICD-10 - I10) well controlled/ order given to patient, will continue current regiment 10/19/2024 Annual physical exam (ICD-10 - Z00.00) labs reviewed and discussed with patient 09/23/2024 Essential hypertension (ICD-10 - I10) 10/19/2024 BMI 45.0-49.9, adult (ICD-10 - Z68.42) [...] - Z13.31) negative screen Plan Of Treatment Pending Test Test Name Order Date MRI CERVICAL SPINE NO CONTRAST 2 Lipid Panel with Reflex 04/12/2025 XR hip LT min 2V 10/19/2024 Future Test Test Name Order Date US SOFT TISSUE 06/15/2020 Next Appt Details Provider Name:Arnaud storey, 04/19/2025 11:15:00 AM, [address] [place] [address], [facility] [address], [phone], Provider Name:Arnaud storey, 10/18/2025 07:30:00 AM, [address] [place] [address], [address], [place], [place], [phone], Provider Name:Arnaud arrietar, 10/27/2025 09:30:00 AM, [address], [address], [place], [place], [phone], Insurance Providers Payer Name Payer Address Payer Phone Subscriber Number Group Number Insured Name Patient Relationship to Insured Coverage Start Date Coverage End Date [address] [place] [phone] [id number] Portillo Valladares Self - patient is the insured Medical (General) History Medical History History ICD Code Refuses flu shot1-7-13 lymph biopsy. had flow minerva es [address] adams at [facility]. no abnormality but not many cells Colonoscopy done 04/21/[address] Nix - repeat 6 to 12 months; Colonoscopy done 10/29/[address] Nix - repeat 10 years Surgical History Surgery Date(Month/Year) Rt total hip arthroplasty 05/2011
--- OUTSIDE RECORDS SUMMARY | 2025-04-12 12:53 | XMS_ITS ---
Author Organization Arnaud Lynn MD Address [address] [place] [phone] Care Team Providers Care Auto Body Repair Teacher Name Role Phone Arnaud Lynn Primary Care Provider REASON FOR VISIT fasting lipids Encounters Encounter Location Date Provider Diagnosis Arnaud Lynn MD [address] [facility] [address] [place] [phone] 04/12/2025 Arnaud Lynn Essential hypertension I10 Assessments Encounter Date Diagnosis (ICD Code) Assessment Notes Treatment Notes Treatment Clinical Notes Section Notes 04/12/2025 Essential hypertension (ICD-10 - I10) Plan Of Treatment Pending Test Test Name Order Date Lipid Panel with Reflex 04/12/2025 Next Appt Details Provider Name:Arnaud storey, 04/19/2025 11:15:00 AM, [address] [place] [address], [address], [phone], Provider Name:Arnaud storey, 10/18/2025 07:30:00 AM, [address] [place] [address], [address], [phone], Provider Name:Arnaud Dela Cruz ier, 10/27/2025 09:30:00 AM, [address], [address], [place], [phone], Progress Notes * Portillo VALLADARES ADOB: 8 (54 yo M)Acc No.[id number]:04/12/2025 Progress Note Patient:?Portillo VALLADARES A Provider:?Arnaud yLnn MD :1970???Age:54 Y???Sex:Male Iam e:04/12/2025 [id number] Subjective: * Chief Complaints: * ???1. Fasting lipids. * Medical History:? Objective: * Vitals:? Assessment: * Assessment: 1.?Essential hypertension - I10 (Primary)??? Plan: * Treatment: * Procedure Codes:?76576 VENIP UNCT, ROUTINE* * * The named appointment provid er may or may not be the originator of this progress note, and it is not deemed complete until electronically signed by the appointment provider. Sign off status: Pending * Provider:?Arnaud Lynn MD Date:?0 04/12/2025 Generated for Beth santos/Cl/eTjavismitting on:?04/12/2025 12:52 PM EDT
[2025-04-12 13:17] LABS: Reflex LDLD? No
== END 2025-04-12 07:48 | disposition home or self-care (01) ==
LOC: HO.LNP 07:47
PROVIDERS: Visit Provider Internal Medicine
DX: I10 Essential (primary) hypertension (principal)
CPT/HCPCS: 80061

== ENCOUNTER 2025-10-18 10:45 | Outpatient (REF) | payer OTHER, SELFPAY ==
--- OUTSIDE RECORDS SUMMARY | 2024-09-23 02:15 | XMS_ITS ---
Author Organization Arnaud Lynn MD Address [address] [place], [place] [id number] Care Team Providers Care Visitor Information Assistant Name Role Phone Arnaud Lynn Primary Care Provider [phone] Results Component Value Reference Range Notes Complete Blood Count Auto Di ff Reviewed date:09/23/2024 12:37:52 PM Interpretation: Performing Lab:[facility], [address] [place] [id number] Notes/Report: White Blood Count 7.4 4.8-10.8 X10*3/uL Red Blood Count 4.71 4.60-5.80 X10*6/uL Hemoglobin 15.2 14.0-18.0 g/dl Hematocrit 45.9 42.0-52.0 % Mean Corpuscular Volume 97.5 80.0-98.0 fL Mean Corpuscular Hemoglobin 32.3 27.0-33.0 pg Mean Corpuscular HGB Conc 33.1 31.0-36.0 g/dl Red Cell Distribution Width 13.1 11.0-16.0 % Platelet Count 259 160-400 X10*3/uL Mean Platelet Volume 10.4 9.4-12.4 fL Neutrophils Percent Auto 58.6 45-73 % Imm Gran Pct Auto 0.3 0.0-0.4 % Lymphocytes Percent Auto 25.6 20-40 % Monocytes Percent Auto 9.7 2-11 % Eosinophils Percent Auto 4.2 0-4 % Basophils Percent Auto 1.6 0-2 % NRBC Pct Auto 0.0 0.0-0.2 /100WBC Neutrophils Absolute Auto 4.3 2.0-8.3 x10*3/u L Imm Gran Abs Auto 0.02 0.00-0.03 X10*3/uL Lymphocytes Absolute Auto 1.9 1.2-4.9 X10*3/u L Monocytes Absolute Auto 0.7 0.1-1.2 X10*3/uL Eosinophils Absolute Auto 0.3 0.0-0.4 X10*3/u L Basophils Absolute Auto 0.1 0.0-0.2 X10*3/uL NRBC Abs Auto 0.000 0.0-0.012 X10*3/uL Comprehensive [place]. Panel Fa st Reviewed date:09/23/2024 03:37:24 PM Interpretation: Performing Lab:[facility], [address] [place] [id number] Notes/Report: Sodium 138 135-145 mmol/L Potassium 4.8 3.3-5.1 mmol/L Chloride 102 96-108 mmol/L Carbon Dioxide 29 22-29 mmol/L Anion Gap 12 12-20 Blood Urea Nitrogen 28 9-16 mg/dL Creatinine 1.37 0.5-1.4 mg/dL Estimated Glomerular Filt Rate 54 NOTE: For -[place] individuals, multiply the result by 1.210. Chronic Kidney Disease: Estimated GFR < 60 mL/min/1.73m2 Severe Kidney Disease: Estimated GFR < 15 mL/min/1.73m2 Glucose Fasting 96 60-99 mg/dL Calcium 9.8 8.4-10.2 mg/dL Bilirubin Total 0.3 0.0-1.0 mg/dL Aspartate Amino Transferase 32 5-37 U/L Slight Hemolysis.Interpret result with caution. Alanine Aminotransferase 21 0-40 U/L Total Protein 6.8 6.5-8.0 g/dL Albumin Level 3.8 3.5-5.0 g/dL Alkaline Phosphatase 79 39-117 U/L Lipid Panel Reviewed date:09/23/2024 12:33:05 PM Interpretation: Performing Lab:[address] [phone] Notes/Report: Triglycerides 102 <150 mg/dL Desirable Triglyceride: less than 150 mg/dL Borderline High Triglyceride 150-199 mg/dL High Triglyceride: 200-499 mg/dL Very High Triglyceride: greater than or equal to 5OO mg/dL Cholesterol 183 <200 mg/dL Desirable Cholesterol: less than 200 mg/dL Borderline High Cholesterol: 200-239 mg/dL High Cholesterol: greater than 239 mg/dL LDL Cholesterol Calculated 99 <100 mg/dL Desirable LDL: less than 100 mg/dL Near Optimal/Above Optimal LDL: 110-129 mg/dL Borderline High LDL: 130-159 mg/dL High LDL: 160-189 mg/dL Very High LDL: greater than or equal to 190 mg/dL HDL Cholesterol 64 >40 mg/dL Desirable HDL: greater than 40 mg/dL Note: This HDL assay may give artificially low results in patients with liver disease. PSA,Total (Free>4and<10) Reviewed date:09/23/2024 02:26:33 PM Interpretation: Performing Lab:[address] [phone] Notes/Report: PSA,Total (Free>4and<10) 0.50 0.00-4.00 ng/mL A Free PSA was not performed: The percentage of Free PSA can be used to enhance the differentiation of prostate cancer from benign prostatic disease in subjects whose PSA levels are between 4.0 and 10.0 ng/mL. For subjects whose PSA levels are below 4.0 or above 10.0 ng/mL, the risk of prostate cancer is determined on the basis of the PSA alone. Therefore the % Free PSA is recommended only for those subjects whose PSA levels are between 4.0 and 10.0 ng/mL. PSA methodology: Bowers Alinity i Chemiluminescent Microparticle Immunoassay (CMIA) UA ClnCatch+Micro w/rflx Cul t Reviewed date:09/23/2024 12:33:26 PM Interpretation: Performing Lab:[address] [phone] Notes/Report: [id number] Urine, Clean Catch Color Urine Yellow Appearance Urine Clear PH 8.0 5.0-9.0 Glucose Urine UA Negative Negative mg/dL Urine Blood Negative Negative Specific [place] - Urine 1.010 1.005-1.025 Urine Protein Negative Neg-Trace mg/dL Urine Ketones Negative Negative mg/dL Nitrite Urine Negative Negative Leukocyte Esterase Urine Negative Negative RBC Urine 0-2 0-2 /HPF WBC Urine 0-5 0-5 /HPF Squamous Epithelial Cell Urine 0-2 0-2 /HPF Bacteria Urine None Seen None Seen Hyaline Casts Urine 0-2 0-2 /LPF REASON FOR VISIT FASTING LABS Immunizations Vaccine Route Administration Date Status Comme nts Fluarix Quadrivalent - 150 IM Intramuscular 09/23/2024 Adm inistered Encounters Encounter Location Date Provider Diagnosis Arnaud Lynn MD [address] [place] [address] [place] [phone] 09/23/2024 Arnaud Lynn Blood tests for routine general physical examination Z00.00 ; Encounter for immunization Z23 and Essential hypertension I10 Assessments Encounter Date Diagnosis (ICD Code) Assessment Notes Treatment Notes Treatment Clinical Notes Section Notes 09/23/2024 Blood tests for routine general physical examination (ICD-10 - Z00.00) 09/23/2024 Encounter for immunization (ICD-10 - Z23) 09/23/2024 Essential hypertension (ICD-10 - I10) Plan Of Treatment Next Appt Details Provider Name:Arnaud Dela Cruz ier, 10/27/2025 09:30:00 AM, [address] [place] [address], Suite [facility], [place], [place], [phone], Progress Notes * Portillo VALLADARES ADOB: [birth year] (55 yo M)Acc No.[id number]:09/23/2024 Progress Note Patient: Portillo GRIFFIN Provider: Karla Lynn MD :1970 A ge:54 Y S ex:Male Date:09/23/2024 Address:[address] [place], [place] [phone] Subjective: * Chief Complaints: * 1 . FASTING LABS. * Medical History: Objective: * Vitals: Assessment: * Assessment: 1. B lood tests for routine general physical examination - Z00.00 (Primary) 2 .?Encounter for immunization - Z23 3 . E ssential hypertension - I10 ? Plan: * Treatment: 2. E ssential hypertension L AB: Complete Blood Count Auto Diff (Collection Date & Time - 09/23/2024 07:15 AM) L AB: Comprehensive [place]. Panel Fast (Collection Date & Time - 09/23/2024 07:15 AM) L AB: Lipid Panel (Collection Date & Time - 09/23/2024 07:15 AM) L AB: PSA,Total (Free>4and<10) (Collection Date & Time - 09/23/2024 07:15 AM) L AB: UA ClnCatch+Micro w/rflx Cult (Collection Date & Time - 09/23/2024 07:15 AM) * Immunizations: Fluarix Quadrivalent - 150 : 0.5 mL (Dose No:1) (Route: Intramuscular) given by Shantelle Walters , Office Staff on Left Deltoid * Procedure Codes: 9 0656 FLU VACCINE NO PRESERV 3 & >, 11727 IMMUNIZATION ADMIN, 12972 VENIPUNCT, ROUTINE* * * The named appointment provid er may or may not be the originator of this progress note, and it is not deemed complete until electronically signed by the appointment provider. Sign off status: Pending * Provider: Karla Lynn MD Date: Generated for Beth santos/Cl/Leonitting on: 12/18/2024 01:53 PM EST
--- OUTSIDE RECORDS SUMMARY | 2024-10-19 06:00 | XMS_ITS ---
Author Organization Arnaud Lynn MD Address [address] [place] [phone] Care Team Providers Care Operations Officer Trust Department Name Role Phone Arnaud Lynn Primary Care Provider Allergies No Known Allergies Results Component Value Reference Range Notes Occult Blood, Stool, Guaiac Reviewed date:10/19/2024 12:30:48 PM Interpretation:Negative Performing Lab: Notes/Report: Negative Occult Blood, Stool, Guaiac Neg REASON FOR VISIT ANNUAL EXAM Medications Medication SIG (Take, Route, Frequency, Duration) Notes Start Date End Date Status amLODIPine Besylate 5 MG TAKE 1 TABLET B Y MOUTH EVERY DAY FOR 30 DAYS Active Lisinopril-hydroCHLOROthia zide 20-25 MG TAKE 1 TABLET BY MOUTH EVERY DAY FOR 90 DAYS Active Social History Tobacco Use: Social History Observation Description Date Details (start date - stop date) Former Smoker NA - NA Tobacco Use/Smoking Question Answer Notes Patient is a former smoker How long has it been since y ou last smoked? 5-10 years Additional Findings: Tobacco Non-User Fo rmer smoker, currently using no form of tobacco Alcohol Screen Question Answer Notes Did you have a drink contain ing alcohol in the past year? Yes How often did you have a dri nk containing alcohol in the past year? 2 to 4 times a month (2 points) How many drinks did you have on a typical day when you were drinking in the past year? 1 or 2 drinks (0 point) How often did you have 6 or more drinks on one occasion in the past year? Never (0 point) Points 2 Interpretation Negative Vital Signs Blood pressure systolic 120 mm Hg 10/19/20 24 Blood pressure diastolic 82 mm Hg 024 Height 72 in 10/19/2024 Weight 324 lbs 10/19/2024 BMI 43.94 kg/m2 10/19/2024 Encounters Encounter Location Date Provider Diagnosis Arnaud Lynn MD [address] [place] [address] [address] [place], [place] [phone] 10/19/2024 Arnaud Lynn Essential hypertensi on I10 ; Annual physical exam Z00.00 ; BMI 45.0-49.9, adult Z68.42 ; Fasciculations of muscle R25.3 ; Hip pain, left M25.552 ; Wheezing R06.2 ; Colon cancer screening Z12.11 and Depression screening Z13.31 Assessments Encounter Date Diagnosis (ICD Code) Assessment Notes Treatment Notes Treatment Clinical Notes Section Notes 10/19/2024 Essential hypertension (ICD-10 - I10) well controlled/ order given to patient, will continue current regiment 10/19/2024 Annual physical exam (ICD-10 - Z00.00) labs reviewed and discussed with patient 10/19/2024 BMI 45.0-49.9, adult (ICD-10 - Z68.42) not dieting, advised to diet 10/19/2024 Fasciculations of muscle (ICD-10 - R25.3) has resolved after surgery 10/19/2024 Hip pain, left (ICD-10 - M25.552) pending diagnostic testing 10/19/2024 Wheezing (ICD-10 - R06.2) doesn't want an inhaler at present 10/19/2024 Colon cancer screening (ICD-10 - Z12.11) guaiac negative 10/19/2024 Depression screening (ICD-10 - Z13.31) negative screen Plan Of Treatment Medication Medication Name Sig Start Date Stop Date Notes amLODIPine Besylate 5 MG TAKE 1 TABLET B Y MOUTH EVERY DAY FOR 30 DAYS Lisinopril-hydroCHLOROthiazi de 20-25 MG TAKE 1 TABLET BY MOUTH EVERY DAY FOR 90 DAYS Treatment Notes Assessment Notes Essential hypertension well controlled/ order given to patient, will continue current regiment Annual physical exam labs reviewed and d iscussed with patient BMI 45.0-49.9, adult not dieting, advise d to diet Fasciculations of muscle has resolved af ter surgery Hip pain, left pending diagnostic t esting Wheezing doesn't want an inha ler at present Colon cancer screening guaiac negative Depression screening negative screen Pending Test Test Name Order Date XR hip LT min 2V 10/19/2024 Next Appt Details Follow Up: 6 Months, Reason: Provider Name:Arnaud Dela Cruz ier, 10/27/2025 09:30:00 AM, [address] [place] [address], [address], [place], [place], [phone], Progress Notes * ARIANNAPortillo MELENDREZ ADOB: 8 (54 yo M)Acc No.[id number]:10/19/2024 Progress Notes Patient: Portillo Aragon Provider: Karla Lynn MD :1970 A ge:54 Y S ex:Male Date:10/19/2024 [facility] [address] [facility] [id number] Subjective: * Chief Complaints: * A NNUAL EXAM * HPI: D epression Screening: PHQ-9 L ittle interest or pleasure in doing things N ot at all, F eeling down, depressed, or hopeless N ot at all, T rouble falling or staying asleep, or sleeping too much N ot at all, F eeling tired or having little energy N ot at all, P oor appetite or overeating N ot at all, F eeling bad about yourself or that you are a failure, or have let yourself or your family down N ot at all, T rouble concentrating on things, such as reading the newspaper or watching television N ot at all, M oving or speaking so slowly that other people could have noticed; or the opposite, being so fidgety or restless that you have been moving around a lot more than usual N ot at all, T houghts that you would be better off or of hurting yourself in some way N ot at all, T otal Score 0 . I nterpretation and Intervention D epression Screening Findings N egative, F ollow-Up for Depression : review of PHQ-9 found negative result, no follow-up needed. C ommunication Needs: Communication Needs D oes the patient have a hearing impairment N o, D oes the patient have a vision impairment? Y es, I f yes, what is the vision impairment? G lasses, D oes the patient have a cognition impairment? N o. S SHELBY Questions: SDOH Questions I n the past year have you been worried about losing housing? N o, I n the past year have you or any family members you live with been unable to get any of the following when it was really needed? Check all that apply: N one. S ymptom(s): patient is a 54 yo male here for annual visit with review of recent labs and follow up of chronic issues. had a cold couple weeks ago. is better now. * ROS: G eneral/Constitutional: Patient denies f atigue , headache. C hange in appetite?denies. C hills d enies. F ever d enies. O phthalmologic: Blurred vision d enies. D ischarge d enies. P ain d enies. E NT: Patient denies d ecreased sense of smell , any loss of taste , sore throat. D ecreased hearing d enies. S ore throat d enies. S wollen glands d enies. E ndocrine: Cold intolerance d enies. E xcessive thirst d enies. H eat intolerance d enies. W eight loss d enies. R espiratory: Cough d enies. S hortness of breath at rest d enies. S hortness of breath with exertion d enies. W heezing d enies. C ardiovascular: Chest pain at rest d enies. C hest pain with exertion?denies. I rregular heartbeat d enies. S hortness of breath d enies. ? G astrointestinal: Abdominal pain d enies. C hange in bowel habits d enies. D iarrhea d enies. N ausea d enies. R ectal bleeding d enies. V omiting d enies . G enitourinary: Blood in urine d enies. D ifficulty urinating d enies. F requent urination d enies. M usculoskeletal: Patient denies m uscle aches. P ainful joints d enies. W eakness d enies. P eripheral Vascular: Patient denies r ed and blue toes. S kin: Dry skin d enies. I tching d enies. D enies?Mole(s), changes in moles, new moles or any lesions of concern. D enies P hotosensitivity. R jesu d enies. N eurologic: Dizziness d enies. F ainting d enies. H eadache?denies. * Medical History: * Surgical History: * Hospitalization/Major Diagno stic Procedure: * Family History: F ather: alive 75 yrs, Healthy. M other: alive 75 yrs, Healthy. 1 brother(s) , 1 sister(s) . . Father- Healthy Mother- Healthy, Denies mental health/substance abuse family history, Denies mental health/substance abuse family history, No pertinent family medical history. * Social History: T obacco Use: T obacco Use/Smoking P atient is a f ormer smoker, H ow long has it been since you last smoked? 5 -10 years, A dditional Findings: Tobacco Non-User F ormer smoker, currently using no form of tobacco. D rugs/Alcohol: A lcohol Screen D id you have a drink containing alcohol in the past year? Y es, H ow often did you have a drink containing alcohol in the past year? 2 to 4 times a month (2 points), H ow many drinks did you have on a typical day when you were drinking in the past year? 1 or 2 drinks (0 point), H ow often did you have 6 or more drinks on one occasion in the past year? N ever (0 point), P oints 2 , I nterpretation N egative. M iscellaneous: C affeine: yes, frequency:, 3-4 cups per day. no Children. Community involvements: yes. Exercise: yes, golf in the summer. Home smoke detector use: yes. Housing: living with relatives. Living with: family. Occupation: weeks/months/years, works full-time. Pets: none. no Travel outside of the [place]. * Medications: T akingLisinopril-hydroCHLOROthiazide 20-25 MG Tablet TAKE 1 TABLET BY MOUTH EVERY DAY FOR 90 DAYS amLODIPine Besylate 5 MG Tablet TAKE 1 TABLET BY MOUTH EVERY DAY FOR 30 DAYS Medication List reviewed and reconciled with the patientTaking Lisinopril-hydroCHLOROthiazide 20-25 MG Tablet TAKE 1 TABLET BY MOUTH EVERY DAY FOR 90 DAYS Taking amLODIPine Besylate 5 MG Tablet TAKE 1 TABLET BY MOUTH EVERY DAY FOR 30 DAYS Medication List reviewed and reconciled with the patient * Allergies: N .K.D.A.yes[Allergies Verified] Objective: * Vitals: H t: 72, Wt:324, BMI:43.94, BP:120/82. * P ast Orders: L ab:Lipid Panel (Order Date - 09/23/2024) (Collection Date - 09/23/2024) Value Reference Range Triglycerides 102 <150 - mg/dL Cholesterol 183 <200 - mg/dL LDL Cholesterol Calculated 99 <100 - mg/dL HDL Cholesterol 64 >40 - mg/dL L ab:PSA,Total (Free>4and<10) (Order Date - 09/23/2024) (Collection Date - 09/23/2024) Value Reference Range PSA,Total (Free>4and<10) 0.50 0.00-4.00 - ng/ mL L ab:UA ClnCatch+Micro w/rflx Cult (Order Date - 09/23/2024) (Collection Date - 09/23/2024) Value Reference Range Color Urine Yellow - Appearance Urine Clear - PH 8.0 5.0-9.0 - Glucose Urine UA Negative Negative - mg/dL Urine Blood Negative Negative - Specific [place] - Urine 1.010 1.005-1.025 - Urine Protein Negative Neg-Trace - mg/dL Urine Ketones Negative Negative - mg/dL Nitrite Urine Negative Negative - Leukocyte Esterase Urine Negative Negative - RBC Urine 0-2 0-2 - /HPF WBC Urine 0-5 0-5 - /HPF Squamous Epithelial Cell Urine 0-2 0-2 - /HP F Bacteria Urine None Seen None Seen - Hyaline Casts Urine 0-2 0-2 - /LPF L ab:Complete Blood Count Auto Diff (Order Date - 09/23/2024) (Collection Date - 09/23/2024) Value Reference Range White Blood Count 7.4 4.8-10.8 - X10*3/uL Red Blood Count 4.71 4.60-5.80 - X10*6/uL Hemoglobin 15.2 14.0-18.0 - g/dl Hematocrit 45.9 42.0-52.0 - % Mean Corpuscular Volume 97.5 80.0-98.0 - fL Mean Corpuscular Hemoglobin 32.3 27.0-33.0 - pg Mean Corpuscular HGB Conc 33.1 31.0-36.0 - g/ dl Red Cell Distribution Width 13.1 11.0-16.0 - % Platelet Count 259 160-400 - X10*3/uL Mean Platelet Volume 10.4 9.4-12.4 - fL Neutrophils Percent Auto 58.6 45-73 - % Imm Gran Pct Auto 0.3 0.0-0.4 - % Lymphocytes Percent Auto 25.6 20-40 - % Monocytes Percent Auto 9.7 2-11 - % Eosinophils Percent Auto 4.2 H 0-4 - % Basophils Percent Auto 1.6 0-2 - % NRBC Pct Auto 0.0 0.0-0.2 - /100WBC Neutrophils Absolute Auto 4.3 2.0-8.3 - x10* 3/uL Imm Gran Abs Auto 0.02 0.00-0.03 - X10*3/uL Lymphocytes Absolute Auto 1.9 1.2-4.9 - X10* 3/uL Monocytes Absolute Auto 0.7 0.1-1.2 - X10*3/ uL Eosinophils Absolute Auto 0.3 0.0-0.4 - X10* 3/uL Basophils Absolute Auto 0.1 0.0-0.2 - X10*3/ uL NRBC Abs Auto 0.000 0.0-0.012 - X10*3/uL L ab:Comprehensive [place]. Panel Fast (Order Date - 09/23/2024) (Collection Date - 09/23/2024) Value Reference Range Sodium 138 135-145 - mmol/L Bilirubin Total 0.3 0.0-1.0 - mg/dL Aspartate Amino Transferase 32 5-37 - U/L Alanine Aminotransferase 21 0-40 - U/L Total Protein 6.8 6.5-8.0 - g/dL Albumin Level 3.8 3.5-5.0 - g/dL Alkaline Phosphatase 79 39-117 - U/L Potassium 4.8 3.3-5.1 - mmol/L Chloride 102 96-108 - mmol/L Carbon Dioxide 29 22-29 - mmol/L Anion Gap 12 12-20 - Blood Urea Nitrogen 28 H 9-16 - mg/dL Creatinine 1.37 0.5-1.4 - mg/dL Estimated Glomerular Filt Rate 54 - Glucose Fasting 96 60-99 - mg/dL Calcium 9.8 8.4-10.2 - mg/dL * Examination: G eneral Examination: GENERAL APPEARANCE: w ell developed, well nourished, in no acute distress. HEAD: n ormocephalic, atraumatic. EYES: p upils equal, round, reactive to light and accommodation, sclera non-icteric. EARS: n ormal. ORAL CAVITY: m ucosa moist. THROAT: c lear. NECK/THYROID: n juan supple, full range of motion, no cervical lymphadenopathy, no bruits. SKIN: w arm and dry, no suspicious lesions. HEART: r egular rate and rhythm, S1, S2 normal, no murmurs.? LUNGS: c lear to auscultation bilaterally/ has diffuse wheezing. ABDOMEN: s oft, nontender, nondistended, bowel sounds present, normal, no organomegaly , no masses palpable. RECTAL EXAM: n ormal tone, no external hemorrhoids, no masses palpable, prostate normal, stool guaiac negative. MALE GENITOURINARY: u ncircumcised , no testicular mass , testes descended bilaterally. EXTREMITIES: n o clubbing, cyanosis, or edema. NEUROLOGIC: n onfocal, motor strength normal upper and lower extremities, sensory exam intact. Assessment: * Assessment: 1. A nnual physical exam - Z00.00 (Primary) 2 . E ssential hypertension - I10 3 .?BMI 45.0-49.9, adult - Z68.42 4 . F asciculations of muscle - R25.3 5 . H ip pain, left - M25.552 6 . W heezing - R06.2 7 . C olon cancer screening - Z12.11 8 . Depression screening - Z13.31 Plan: * Treatment: 2. E ssential hypertension Continue Lisinopril-hydroCHLOROthiazide Tablet, 20-25 MG, TAKE 1 TABLET BY MOUTH EVERY DAY FOR 90 DAYS; C ontinue amLODIPine Besylate Tablet, 5 MG, TAKE 1 TABLET BY MOUTH EVERY DAY FOR 30 DAYS.? Notes: well controlled/ order given to patient, will continue current regiment 3. B AK 45.0-49.9, adult Notes: not dieting, advised to diet 4. F asciculations of muscle Notes: has resolved after surgery 5. H ip pain, left I maging: XR hip LT min 2V Notes: pending diagnostic testing 6. W saray Notes: doesn't want an inhaler at present 7. C olon cancer screening L AB: Occult Blood, Stool, Guaiac N egative Value Reference Range O ccult Blood, Stool, Guaiac Neg Notes: guaiac negative??8.?Depression screening? Notes: negative screen?? * Procedure Codes: 8 2270 TEST FOR BLOOD, FECES * Preventive Medicine: Counseling: C are goal follow-up plan: C ranchonseling for abnormal BMI provided?Yes, Susana quinteros Normal BMI Follow-up G ehsan encouragement to exercise. * Follow Up: 6 Months * * Sign off status: Completed true * Provider: Karla Lynn MD Date: 12/19/2023 Generated for Beth santos/Cl/Leonitting on: 12/18/2024 01:53 PM EST History and Physical Notes * HPI (History of Present Illness) Category Sub-Category Detail Notes Category Not es Symptom(s) patient is a 54 yo male here for annual visit with review of recent labs and follow up of chronic issues. had a cold couple weeks ago. is better now Depression Screening PHQ-9 Little inte rest or pleasure in doing things: Not at all Feeling down, depressed, or hopeless: No t at all Trouble falling or staying asleep, or sl eeping too much: Not at all Feeling tired or having little energy: N ot at all Poor appetite or overeating: Not at all Feeling bad about yourself o r that you are a failure, or have let yourself or your family down: Not at all Trouble concentrating on thi ngs, such as reading the newspaper or watching television: Not at all Moving or speaking so slowly that other people could have noticed; or the opposite, being so fidgety or restless that you have been moving around a lot more than usual: Not at all Thoughts that you would be b jimi off or of hurting yourself in some way: Not at all Total Score: 0 Interpretation and Intervention Depression Elisa petty Findings: Negative Follow-Up for Depression: : review of PH Q-9 found negative result, no follow-up needed SDOH Questions SDOH Questions In the past year have you been worried about losing housing?: No In the past year have you or any family members you live with been unable to get any of the following when it was really needed? Check all that apply:: None Communication Needs Communication Needs Does the patient have a hearing impairment: No Does the patient have a vision impairmen t?: Yes If yes, what is the vision impairment?: Glasses Does the patient have a cognition impair ment?: No Examination Category Sub-Category Detail Notes Category Not es General Examination GENERAL APPEARANCE: well dev eloped, well nourished, in no acute distress HEAD: normocephalic, atrau matic EYES: pupils equal, round, reactive to light and accommodation, sclera non-icteric EARS: normal THROAT: clear NECK/THYROID: neck supple, full ra nge of motion, no cervical lymphadenopathy, no bruits HEART: regular rate and rhy thm, S1, S2 normal, no murmurs LUNGS: clear to auscultatio n bilaterally/ has diffuse wheezing ABDOMEN: soft, nontender, non distended, bowel sounds present, normal, no organomegaly , no masses palpable NEUROLOGIC: nonfocal, motor stre ngth normal upper and lower extremities, sensory exam intact SKIN: warm and dry, no lissette picious lesions EXTREMITIES: no clubbing, cyanosi s, or edema MALE GENITOURINARY: uncircumcised , no t esticular mass , testes descended bilaterally RECTAL EXAM: normal tone, no exte rnal hemorrhoids, no masses palpable, prostate normal, stool guaiac negative ORAL CAVITY: mucosa moist
--- OUTSIDE RECORDS SUMMARY | 2025-04-12 02:30 | XMS_ITS ---
Author Organization Arnaud Lynn MD Address [address] [place], [place] [phone] Care Team Providers Care Systems Navigator Name Role Phone Arnaud Lynn Primary Care Provider Results Component Value Reference Range Notes Lipid Panel with Reflex Reviewed date:04/12/2025 02:17:31 PM Interpretation: Performing Lab:[facility], [address] [place] [phone] Notes/Report: Triglycerides 118 <150 mg/dL Desirable Triglyceride: less than 150 mg/dL Borderline High Triglyceride 150-199 mg/dL High Triglyceride: 200-499 mg/dL Very High Triglyceride: greater than or equal to 5OO mg/dL Cholesterol 206 <200 mg/dL Desirable Cholesterol: less than 200 mg/dL Borderline High Cholesterol: 200-239 mg/dL High Cholesterol: greater than 239 mg/dL LDL Cholesterol Calculated 120 <100 mg/dL Desirable LDL: less than 100 mg/dL Near Optimal/Above Optimal LDL: 110-129 mg/dL Borderline High LDL: 130-159 mg/dL High LDL: 160-189 mg/dL Very High LDL: greater than or equal to 190 mg/dL HDL Cholesterol 63 >40 mg/dL Desirable HDL: greater than 40 mg/dL Note: This HDL assay may give artificially low results in patients with liver disease. REASON FOR VISIT fasting lipids Encounters Encounter Location Date Provider Diagnosis Arnaud Lynn MD [address] [place], [place] [phone] 04/12/2025 Arnaud Lynn Essential hypertension I10 Assessments Encounter Date Diagnosis (ICD Code) Assessment Notes Treatment Notes Treatment Clinical Notes Section Notes 04/12/2025 Essential hypertension (ICD-10 - I10) Plan Of Treatment Next Appt Details Provider Name:Arnaud Dela Cruz ier, 10/27/2025 09:30:00 AM, [address], [address], [place], [place], [phone], Progress Notes * Portillo VALLADARES ADOB: 8 (55 yo M)Acc No.[id number]:04/12/2025 Progress Note Patient: Portillo GRIFFIN Provider: Karla Lynn MD :1970 A ge:54 Y S ex:Male Date:04/12/2025 Address:[address] [place] [address] [place], [id number] Subjective: * Chief Complaints: * 1 . Fasting lipids. * Medical History: Objective: * Vitals: Assessment: * Assessment: 1. E ssential hypertension - I10 (Primary) Plan: * Treatment: * Procedure Codes: 3 6415 VENIPUNCT, ROUTINE* * * The named appointment provid er may or may not be the originator of this progress note, and it is not deemed complete until electronically signed by the appointment provider. Sign off status: Pending * Provider: Karla Lynn MD Date: 0 04/12/2025 Generated for Beth santos/Cl/Leonitting on: 12/18/2024 01:54 PM EST
--- OUTSIDE RECORDS SUMMARY | 2025-04-19 06:15 | XMS_ITS ---
Author Organization Arnaud Lynn MD Address [address] [place] [phone] Care Team Providers Care Coal Handler Name Role Phone Arnaud Lynn Primary Care Provider [phone] Allergies No Known Allergies REASON FOR VISIT 6 month Medications Medication SIG (Take, Route, Frequency, Duration) Notes Start Date End Date Status Tamsulosin HCl 0.4 MG 1 capsule Orally O nce a day for 30 days 04/19/2025 Active amLODIPine Besylate 5 MG TAKE 1 TABLET B Y MOUTH EVERY DAY FOR 30 DAYS Active Lisinopril-hydroCHLOROthia zide 20-25 MG TAKE 1 TABLET BY MOUTH EVERY DAY Active Vital Signs Blood pressure systolic 180 mm Hg 04/19/20 25 Blood pressure diastolic 96 mm Hg 025 Height 72 in 04/19/2025 Weight 350 lbs 04/19/2025 BMI 47.46 kg/m2 04/19/2025 weight is up 26 pounds since 10-19-24 Encounters Encounter Location Date Provider Diagnosis Arnaud Lynn MD [address] [place] [phone] 04/19/2025 Arnaud Lynn Nocturia R35.1 and Essential hypertension I10 Assessments Encounter Date Diagnosis (ICD Code) Assessment Notes Treatment Notes Treatment Clinical Notes Section Notes 04/19/2025 Nocturia (ICD-10 - R35.1) patient verbalized undrstanding ofmedication and directions for use 04/19/2025 Essential hypertension (ICD-10 - I10) stable, will continue current regiment Plan Of Treatment Medication Medication Name Sig Start Date Stop Date Notes Tamsulosin HCl 0.4 MG 1 capsule Orally O nce a day for 30 days 04/19/2025 amLODIPine Besylate 5 MG TAKE 1 TABLET B Y MOUTH EVERY DAY FOR 30 DAYS Lisinopril-hydroCHLOROthiazi de 20-25 MG TAKE 1 TABLET BY MOUTH EVERY DAY Treatment Notes Assessment Notes Nocturia patient verbalized u ndrstanding ofmedication and directions for use Essential hypertension stable, will cont inue current regiment Pending Test Test Name Order Date Glucose Fasting 04/19/2025 Next Appt Details Follow Up: 3 Months, Reason: Provider Name:Arnaud Dela Cruz ier, 10/27/2025 09:30:00 AM, [address] [place] [address], [place] [address], [place], [place], [phone], Progress Notes * Portillo VALLADARES ADOB: [birth year] (54 yo M)Acc No.[id number]:04/19/2025 Progress Notes Patient: Portillo GRIFFIN Provider: Karla Lynn MD :1970 A ge:54 Y S ex:Male Date:04/19/2025 Address:[address] [place] [address] [place], [place] [id number] Subjective: * Chief Complaints: * 6 month * HPI: S ymptom(s): patient is a 54 yo male here for 6 month follow up visit/ has not been able to golf due to weather. * ROS: G eneral/Constitutional: Denies C hills. D enies F atigue. D enies F ever. D enies H eadache. E NT: Denies S ore throat. R espiratory: Denies C ough. D enies S hortness of breath at rest. D enies S hortness of breath with exertion. C ardiovascular: Denies C hest pain at rest. D enies C hest pain with exertion. D enies D izziness. D enies P alpitations. D enies S hortness of breath. G astrointestinal: Denies D iarrhea. D enies N ausea. * Medical History: * Surgical History: * Hospitalization/Major Diagno stic Procedure: * Medications: T akingLisinopril-hydroCHLOROthiazide 20-25 MG Tablet TAKE 1 TABLET BY MOUTH EVERY DAY amLODIPine Besylate 5 MG Tablet TAKE 1 TABLET BY MOUTH EVERY DAY FOR 30 DAYS Medication List reviewed and reconciled with the patientTaking Lisinopril-hydroCHLOROthiazide 20-25 MG Tablet TAKE 1 TABLET BY MOUTH EVERY DAY Taking amLODIPine Besylate 5 MG Tablet TAKE 1 TABLET BY MOUTH EVERY DAY FOR 30 DAYS Medication List reviewed and reconciled with the patient * Allergies: N .K.D.A.yes[Allergies Verified] Objective: * Vitals: H t: 72, Wt: 350, BMI:47.46, BP:180/96, Repeat BP:130/88, Wt-k.76. weight is up 26 pounds since 10-19-24. * P ast Orders: L ab:Lipid Panel with Reflex (Order Date - 04/12/2025) (Collection Date & Time - 04/12/2025 07:47 AM) Value Reference Range Triglycerides 118 <150 - mg/dL Cholesterol 206 H <200 - mg/dL LDL Cholesterol Calculated 120 H <100 - mg/dL HDL Cholesterol 63 >40 - mg/dL * Examination: G eneral Examination: GENERAL APPEARANCE: a lert, well hydrated, in no distress.? HEAD: n ormocephalic. SKIN: g ood turgor. HEART: r egular rate and rhythm, no murmurs, rubs, gallops.? LUNGS: n o wheezes, rales, rhonchi, good air movement, clear to auscultation bilaterally. Assessment: * Assessment: 1. N octuria - R35.1 (Primary) 2 . E ssential hypertension - I10 Plan: * Treatment: 2. E ssential hypertension Continue Lisinopril-hydroCHLOROthiazide Tablet, 20-25 MG, TAKE 1 TABLET BY MOUTH EVERY DAY; C ontinue amLODIPine Besylate Tablet, 5 MG, TAKE 1 TABLET BY MOUTH EVERY DAY FOR 30 DAYS. Notes: stable, will continue current regiment * Procedure Codes: * Follow Up: 3 Months * * Sign off status: Completed true * Provider: Karla Lynn MD Date: 0 04/19/2025 Generated for Beth santos/Cl/Nani on: 1 12/18/2024 01:54 PM EST History and Physical Notes * HPI (History of Present Illness) Category Sub-Category Detail Notes Category Not es Symptom(s) patient is a 54 yo male here for 6 month follow up visit/ has not been able to golf due to weather Examination Category Sub-Category Detail Notes Category Not es General Examination GENERAL APPEARANCE: alert, w ell hydrated, in no distress HEAD: normocephalic HEART: regular rate and rhy thm, no murmurs, rubs, gallops LUNGS: no wheezes, rales, r honchi, good air movement, clear to auscultation bilaterally SKIN: good turgor
--- OUTSIDE RECORDS SUMMARY | 2025-08-08 05:15 | XMS_ITS ---
Author Organization Arnaud Lynn MD Address [address] [place] [phone] Care Team Providers Care Industrial Order Clerk Name Role Phone Arnaud Lynn Primary Care Provider Allergies No Known Allergies REASON FOR VISIT 3 MONTH Medications Medication SIG (Take, Route, Frequency, Duration) Notes Start Date End Date Status Tamsulosin HCl 0.4 MG 1 capsule Orally t wice a day for 30 days 08/08/2025 Active Lisinopril-hydroCHLOROthia zide 20-25 MG TAKE 1 TABLET BY MOUTH EVERY DAY Active amLODIPine Besylate 5 MG TAKE 1 TABLET B Y MOUTH EVERY DAY FOR 30 DAYS Active Tamsulosin HCl 0.4 MG 1 capsule Orally O nce a day for 30 days 04/19/2025 Active Immunizations Vaccine Route Administration Date Status Comme nts Fluarix Quadrivalent - 150 IM Intramuscular 08/08/2025 Adm inistered Problems Problem Type SNOMED Code ICD Code Onset Dates Problem Status W/U Status Risk Notes Problem Prostatism (63232754) Prostatism (N40.0) Active confirmed Vital Signs Blood pressure systolic 172 mm Hg 09/15/20 25 Blood pressure diastolic 90 mm Hg 025 Height 72 in 08/08/2025 Weight 346 lbs 08/08/2025 BMI 46.92 kg/m2 08/08/2025 weight is down 4 pounds [facility] 04-19-25 Encounters Encounter Location Date Provider Diagnosis Arnaud Lynn MD [address] [place] [address] [place] [phone] 08/08/2025 Arnaud Lynn Essential hypertensi on I10 ; Fasciculations of muscle R25.3 ; Prostatism N40.0 ; BMI 45.0-49.9, adult Z68.42 and Encounter for administration of vaccine Z23 Assessments Encounter Date Diagnosis (ICD Code) Assessment Notes Treatment Notes Treatment Clinical Notes Section Notes 08/08/2025 Essential hypertension (ICD-10 - I10) doing well 08/08/2025 Fasciculations of muscle (ICD-10 - R25.3) has resolved 08/08/2025 Prostatism (ICD-10 - N40.0) 08/08/2025 BMI 45.0-49.9, adult (ICD-10 - Z68.42) needs to lose weigh 08/08/2025 Encounter for administration of vaccine (ICD-10 - Z23) regular flu vaccine administered Plan Of Treatment Medication Medication Name Sig Start Date Stop Date Notes Tamsulosin HCl 0.4 MG 1 capsule Orally t wice a day for 30 days 08/08/2025 Lisinopril-hydroCHLOROthiazi de 20-25 MG TAKE 1 TABLET BY MOUTH EVERY DAY amLODIPine Besylate 5 MG TAKE 1 TABLET B Y MOUTH EVERY DAY FOR 30 DAYS Treatment Notes Assessment Notes Essential hypertension doing well Fasciculations of muscle has resolved BMI 45.0-49.9, adult needs to lose weigh Encounter for administration of vaccine regular flu vaccine administered Next Appt Details Provider Name:Arnaud Dela Cruz ier, 10/27/2025 09:30:00 AM, [address] [place] [address], [address], [place], [place], [phone], Progress Notes * Portillo VALLADARES ADOB: [birth year] (55 yo M)Acc No.[id number]:08/08/2025 Progress Notes Patient: Portillo GRIFFIN Provider: Karla Lynn MD :1970 A ge:55 Y S ex:Male Date:08/08/2025 Address:[address] [id number] Subjective: * Chief Complaints: * 3 MONTH * HPI: S ymptom(s): patient is a 55 yo male here for 3 month follow up visit. * ROS: G eneral/Constitutional: Denies C hills. [...] Hospitalization/Major Diagno stic Procedure: * Medications: T akingTamsulosin HCl 0.4 MG Capsule 1 capsule Orally Once a day Lisinopril-hydroCHLOROthiazide 20-25 MG Tablet TAKE 1 TABLET BY MOUTH EVERY DAY amLODIPine Besylate 5 MG Tablet TAKE 1 TABLET BY MOUTH EVERY DAY FOR 30 DAYS Taking Tamsulosin HCl 0.4 MG Capsule 1 capsule Orally Once a day Taking Lisinopril-hydroCHLOROthiazide 20-25 MG Tablet TAKE 1 TABLET BY MOUTH EVERY DAY Taking amLODIPine Besylate 5 MG Tablet TAKE 1 TABLET BY MOUTH EVERY DAY FOR 30 DAYS * Allergies: N .K.D.A.yes[Allergies Verified] Objective: * Vitals: H t: 72, Wt: 346, BMI:46.92, BP:172/90, Repeat BP:120/80, Wt-k.94. weight is down 4 pounds since 04-19-25. * Examination: G eneral Examination: GENERAL APPEARANCE: a bnormal. HEAD: n ormocephalic. SKIN: g ood turgor. HEART: n o murmurs, rubs, gallops, regular rate and rhythm.? LUNGS: n o wheezes, rales, rhonchi, good air movement, clear to auscultation bilaterally. Assessment: * Assessment: 1. E ssential hypertension - I10 (Primary) 2 . F asciculations of muscle - R25.3 3 . P rostatism - N40.0 4 . B DC 45.0-49.9, adult - Z68.42 5 . E ncounter for administration of vaccine - Z23 Plan: * Treatment: 2. F asciculations of muscle Notes: has resolved 3. P rostatism Start Tamsulosin HCl Capsule, 0.4 MG, 1 capsule, Orally, twice a day, 30 days, 60 Capsule, Refills 5. 4. B DC 45.0-49.9, adult Notes: needs to lose weigh 5. E ncounter for administration of vaccine Notes: regular flu vaccine administered * Immunizations: Fluarix Quadrivalent - 150 : 0.5 mL (Dose No:1) (Route: Intramuscular) given by Shantelle Walters , Office Staff on Left Deltoid * Procedure Codes: 9 0656 FLU VACCINE NO PRESERV 3 & >88739 IMMUNIZATION ADMIN * Preventive Medicine: Immunizations: I nfluenza H ave you had a flu shot since the most recent July 25? Y es. * * Sign off status: Completed true * Provider: Karla Lynn MD Date: 0 08/08/2025 Generated for Aracelisi danielle/Cl/eTransmitting on: 12/18/2024 01:53 PM EST History and Physical Notes * HPI (History of Present Illness) Category Sub-Category Detail Notes Category Not es Symptom(s) patient is a 55 yo male here for 3 month follow up visit Examination Category Sub-Category Detail Notes Category Not es General Examination GENERAL APPEARANCE: abnormal HEAD: normocephalic HEART: no murmurs, rubs, ga llops, regular rate and rhythm LUNGS: no wheezes, rales, r honchi, good air movement, clear to auscultation bilaterally SKIN: good turgor
--- OUTSIDE RECORDS SUMMARY | 2025-10-18 02:30 | XMS_ITS ---
Author Organization Arnaud Lynn MD Address [address] [place] [phone] Care Team Providers Care Calender Runner Name Role Phone Arnaud Lynn Primary Care Provider [phone] Results Component Value Reference Range Notes Comprehensive [place]. Panel Fa st (Not yet reviewed by provider) Interpretation: Performing Lab:[facility], [address] [place] [phone] Notes/Report: Sodium 134 135-145 mmol/L Potassium 4.4 3.3-5.1 mmol/L Chloride 97 96-108 mmol/L Carbon Dioxide 29 22-29 mmol/L Anion Gap 12 12-20 Blood Urea Nitrogen 26 9-16 mg/dL Creatinine 1.41 0.5-1.4 mg/dL Estimated Glomerular Filt Rate 52 Chronic Kidney Disease: Estimated GFR < 60 mL/min/1.73m2 Severe Kidney Disease: Estimated GFR < 15 mL/min/1.73m2 Glucose Fasting 106 60-99 mg/dL A fasting glucose from 100-125 mg/dl is considered impaired (pre-diabetes). Calcium 9.1 8.4-10.2 mg/dL Bilirubin Total 0.4 0.0-1.0 mg/dL Aspartate Amino Transferase 27 5-37 U/L Alanine Aminotransferase 16 0-40 U/L Total Protein 6.7 6.5-8.0 g/dL Albumin Level 4.1 3.5-5.0 g/dL Alkaline Phosphatase 97 39-117 U/L UA ClnCatch+Micro w/rflx Cul t (Not yet reviewed by provider) Interpretation: Performing Lab:[facility], [address] [place] [phone] Notes/Report: Urine, Clean Catch Color Urine Yellow Appearance Urine Clear PH 7.5 5.0-9.0 Glucose Urine UA Negative Negative mg/dL Urine Blood Negative Negative Specific [place] - Urine 1.010 1.005-1.025 Urine Protein Negative Neg-Trace mg/dL Urine Ketones Negative Negative mg/dL Nitrite Urine Negative Negative Leukocyte Esterase Urine Negative Negative RBC Urine 0-2 0-2 /HPF WBC Urine 0-5 0-5 /HPF Squamous Epithelial Cell Urine 0-2 0-2 /HPF Bacteria Urine None Seen None Seen Hyaline Casts Urine 0-2 0-2 /LPF Complete Blood Count Auto Di ff Reviewed date:10/18/2025 12:39:46 PM Interpretation: Performing Lab:[facility], [address] [place] [phone] Notes/Report: White Blood Count 7.1 4.8-10.8 X10*3/uL Red Blood Count 4.44 4.60-5.80 X10*6/uL Hemoglobin 14.0 14.0-18.0 g/dl Hematocrit 42.3 42.0-52.0 % Mean Corpuscular Volume 95.3 80.0-98.0 fL Mean Corpuscular Hemoglobin 31.5 27.0-33.0 pg Mean Corpuscular HGB Conc 33.1 31.0-36.0 g/dl Red Cell Distribution Width 12.8 11.0-16.0 % Platelet Count 292 160-400 X10*3/uL Mean Platelet Volume 10.1 9.4-12.4 fL Neutrophils Percent Auto 55.4 45-73 % Imm Gran Pct Auto 0.3 0.0-0.4 % Lymphocytes Percent Auto 27.0 20-40 % Monocytes Percent Auto 12.5 2-11 % Eosinophils Percent Auto 3.4 0-4 % Basophils Percent Auto 1.4 0-2 % NRBC Pct Auto 0.0 0.0-0.2 /100WBC Neutrophils Absolute Auto 4.0 2.0-8.3 x10*3/u L Imm Gran Abs Auto 0.02 0.00-0.03 X10*3/uL Lymphocytes Absolute Auto 1.9 1.2-4.9 X10*3/u L Monocytes Absolute Auto 0.9 0.1-1.2 X10*3/uL Eosinophils Absolute Auto 0.2 0.0-0.4 X10*3/u L Basophils Absolute Auto 0.1 0.0-0.2 X10*3/uL NRBC Abs Auto 0.000 0.0-0.012 X10*3/uL Lipid Panel Reviewed date:10/18/2025 12:37:29 PM Interpretation: Performing Lab:[address] [phone] Notes/Report: Triglycerides 73 <150 mg/dL Desirable Triglyceride: less than 150 mg/dL Borderline High Triglyceride 150-199 mg/dL High Triglyceride: 200-499 mg/dL Very High Triglyceride: greater than or equal to 5OO mg/dL Cholesterol 180 <200 mg/dL Desirable Cholesterol: less than 200 mg/dL Borderline High Cholesterol: 200-239 mg/dL High Cholesterol: greater than 239 mg/dL LDL Cholesterol Calculated 89 <100 mg/dL Desirable LDL: less than 100 mg/dL Near Optimal/Above Optimal LDL: 110-129 mg/dL Borderline High LDL: 130-159 mg/dL High LDL: 160-189 mg/dL Very High LDL: greater than or equal to 190 mg/dL HDL Cholesterol 77 >40 mg/dL Desirable HDL: greater than 40 mg/dL Note: This HDL assay may give artificially low results in patients with liver disease. PSA,Total (Free>4and<10) Reviewed date:10/18/2025 12:36:55 PM Interpretation: Performing Lab:[address] [phone] Notes/Report: PSA,Total (Free>4and<10) 0.39 0.00-4.00 ng/mL A Free PSA was not [...] Bowers Alinity i Chemiluminescent Microparticle Immunoassay (CMIA) REASON FOR VISIT yearly fasting labs Encounters Encounter Location Date Provider Diagnosis Arnaud Lynn MD [address] [place] [address] [place] [phone] 10/18/2025 Arnaud Lynn Blood tests for routine general physical examination Z00.00 ; Essential hypertension I10 and Prostatism N40.0 Assessments Encounter Date Diagnosis (ICD Code) Assessment Notes Treatment Notes Treatment Clinical Notes Section Notes 10/18/2025 Blood tests for routine general physical examination (ICD-10 - Z00.00) 10/18/2025 Essential hypertension (ICD-10 - I10) 10/18/2025 Prostatism (ICD-10 - N40.0) Plan Of Treatment Pending Test Test Name Order Date Comprehensive [place]. Panel Fast UA ClnCatch+Micro w/rflx Cult 10/18/2025 Next Appt Details Provider Name:Arnaud Dela Cruz ier, 10/27/2025 09:30:00 AM, [address] [place] [address], [address] [facility], [place], [place], [phone], Progress Notes * Portillo VALLADARES ADOB: [birth year] (55 yo M)Acc No.[id number]:10/18/2025 Progress Note Patient: Portillo GRIFFIN Provider: Karla Lynn MD :1970 A ge:55 Y S ex:Male Date:10/18/2025 Address:[address] [place] [id number] Subjective: * Chief Complaints: * 1 . Yearly fasting labs. * Medical History: Objective: * Vitals: Assessment: * Assessment: 1. B lood tests for routine general physical examination - Z00.00 (Primary) 2 .?Essential hypertension - I10 3 . P rostatism - N40.0 Plan: * Treatment: 2. E ssential hypertension L AB: Comprehensive [place]. Panel Fast (Collection Date & Time - 10/18/2025 07:30 AM) L AB: UA ClnCatch+Micro w/rflx Cult (Collection Date & Time - 10/18/2025 07:30 AM) L AB: Complete Blood Count Auto Diff (Collection Date & Time - 10/18/2025 07:30 AM) L AB: Lipid Panel (Collection Date & Time - 10/18/2025 07:30 AM) L AB: PSA,Total (Free>4and<10) (Collection Date & Time - 10/18/2025 07:30 AM) 3. P rostatism L AB: Comprehensive [place]. Panel Fast (Collection Date & Time - 10/18/2025 07:30 AM) L AB: UA ClnCatch+Micro w/rflx Cult (Collection Date & Time - 10/18/2025 07:30 AM) L AB: Complete Blood Count Auto Diff (Collection Date & Time - 10/18/2025 07:30 AM) L AB: Lipid Panel (Collection Date & Time - 10/18/2025 07:30 AM) L AB: PSA,Total (Free>4and<10) (Collection Date & Time - 10/18/2025 07:30 AM) * Procedure Codes: 3 6415 VENIPUNCT, ROUTINE* * * The named appointment provid er may or may not be the originator of this progress note, and it is not deemed complete until electronically signed by the appointment provider. Sign off status: Pending * Provider: Karla Lynn MD Date: 12/18/2024 Generated for Beth santos/Cl/[place]ucks[place]at on: 12/18/2024 01:54 PM EST
[2025-10-18 10:49] LABS: MANUAL DIFF FLAG NO
[2025-10-18 11:14] LABS: Appearance Urine Clear; Glucose Urine UA Negative (Negative); PH 7.5 (5.0-9.0); Specific Gravity - Urine 1.010 (1.005-1.025)
[2025-10-18 11:15] LABS: Hematocrit 42.3 % (42.0-52.0); Hemoglobin 14.0 g/dl (14.0-18.0); Imm Gran Abs Auto 0.02 X10*3/uL (0.00-0.03); Imm Gran Pct Auto 0.3 % (0.0-0.4); Lymphocytes Absolute Auto 1.9 X10*3/uL (1.2-4.9); Mean Corpuscular HGB Conc 33.1 g/dl (31.0-36.0); Mean Corpuscular Hemoglobin 31.5 pg (27.0-33.0); Mean Corpuscular Volume 95.3 fL (80.0-98.0); NRBC Abs Auto 0.000 X10*3/uL (0.0-0.012); NRBC Pct Auto 0.0 /100WBC (0.0-0.2); Platelet Count 292 X10*3/uL (160-400); Red Blood Count 4.44 X10*6/uL (4.60-5.80); White Blood Count 7.1 X10*3/uL (4.8-10.8)
[2025-10-18 11:25] LABS: Alanine Aminotransferase 16 U/L (0-40); Albumin Level 4.1 g/dL (3.5-5.0); Alkaline Phosphatase 97 U/L (39-117); Anion Gap 12 (12-20); Aspartate Amino Transferase 27 U/L (5-37); Blood Urea Nitrogen 26 mg/dL (9-16); Calcium 9.1 mg/dL (8.4-10.2); Carbon Dioxide 29 mmol/L (22-29); Chloride 97 mmol/L (96-108); Cholesterol 180 mg/dL (<200); Estimated Glomerular Filt Rate 52; HDL Cholesterol 77 mg/dL (>40); Potassium 4.4 mmol/L (3.3-5.1); Sodium 134 mmol/L (135-145); Total Protein 6.7 g/dL (6.5-8.0); Triglycerides 73 mg/dL (<150)
[2025-10-18 11:49] LABS: PSA,Total (Free>4and<10) 0.39 ng/mL (0.00-4.00)
--- OUTSIDE RECORDS SUMMARY | 2025-10-18 13:54 | XMS_ITS | Patient Health Record ---
Author Organization [facility] Address [address] [place] [address] Care Team Providers Care Ase Master Mechanic Name Role Phone Arnaud Lynn MD Primary Care Provider Rod Langston Jr Unavailable [phone] Allergies Allergen (clinical drug ingredient) Drug/Non Drug Allergy documented on EMR Reaction Allergy Type Onset Date Status some fabric softners (uncoded) Unknown Allergy Active Reason For Referral No Information Medications Medication SIG (Take, Route, Frequency, Duration) Notes Start Date End Date Status Lisinopril-hydroCHLOROthiazi de 10-12.5 MG Tablet TAKE 1 TABLET BY MOUTH EVERY DAY Oral; Duration: 90 Active Aleve 220 MG Tablet 1 tablet with food o r milk as needed Orally every 12 hrs Active Colyte with Flavor Packs 240 GM Solution Reconstituted As directed Orally Over the specified time.; Duration: 1 day(s) 02/11/2019 Active Immunizations Vaccine Route Administration Date Status Comme nts Influenza Unknown 09/24/2018 Administered Social History Tobacco Use: Social History Observation Description Date Details (start date - stop date) Former Smoker NA - NA Social History Drugs/Alcohol: Social Info Question Answer Notes Alcohol Screen Did you have a drink containing alcohol in the past year? Yes How often did you have a drink containing alcohol in the past year? 2 to 3 times a week (3 points) How many drinks did you have on a typical day when you were drinking in the past year? 5 or 6 drinks (2 points) Points 5 Interpretation Positive Tobacco Use: Social Info Question Answer Notes Tobacco Use/Smoking Patient is a former smoker How long has it been since you last smoked? 5-10 years Additional Details Category Social Info Options Details Miscellaneous: Marital status: single Occupation: seasonal retail merchandiser Problems Problem Type SNOMED Code ICD Code Onset Dates Problem Status W/U Status Risk Notes Problem Colon cancer screening (646842463) Colon cancer screening (Z12.11) Active confirmed Problem [facility] current use of non-steroidal anti-inflammat ory drug ([id number] 03) [facility] (current) use of non-steroidal anti-inflammatori es (NSAID) (Z79.1) Active confirmed Problem Pre-procedure evaluation check (817746401) Encounter for other preprocedural examination (Z01.818) Active confirmed Plan Of Treatment Future Test Test Name Order Date COLONOSCOPY 02/11/2019 Insurance Providers Payer Name Payer Address Payer Phone Subscriber Number Group Number Insured Name Patient Relationship to Insured Coverage Start Date Coverage End Date [facility] [address] [place] [phone] [id number] DAMIAN FITZGERALD Self - patient is the insured Medical (General) History Medical History History ICD Code hypertension Surgical History Surgery Date(Month/Year) left hip pins 1982 left hip replacement 2010 right hip replacement 2010
--- OUTSIDE RECORDS SUMMARY | 2025-10-18 13:54 | XMS_ITS | Patient Health Record ---
Author Organization Arnaud Lynn MD Address [address] [place] [phone] Care Team Providers Care Recruiting Associate Name Role Phone Arnaud Lynn Primary Care Provider [phone] Allergies No Known Allergies Results Component Value Reference Range Notes Lipid Panel with Reflex Reviewed date:04/12/2025 02:17:31 PM Interpretation: Performing Lab:[facility], [address] [place] [phone] Notes/Report: Triglycerides 118 <150 mg/dL Desirable Triglyceride: [...] low results in patients with liver disease. [facility] [place]. Panel Fa (Not yet reviewed by provider) Interpretation: Performing Lab:[facility], [address] [place] [phone] Notes/Report: Sodium 134 135-145 mmol/L Potassium 4.4 [...] (Not yet reviewed by provider) Interpretation: Performing Lab:[facility], [address] [place] [phone] Notes/Report: Urine, Clean Catch Color Urine Yellow Appearance Urine Clear PH 7.5 5.0-9.0 Glucose Urine UA Negative Negative mg/dL Urine Blood Negative Negative Specific [place] - Urine 1.010 1.005-1.025 Urine Protein Negative [...] ff Reviewed date:10/18/2025 12:39:46 PM Interpretation: Performing Lab:[facility], [address] [place] [phone] Notes/Report: White Blood Count 7.1 4.8-10.8 X10*3/uL [...] Panel Reviewed date:10/18/2025 12:37:29 PM Interpretation: Performing Lab:[facility], [address] [place] [phone] Notes/Report: Triglycerides 73 <150 mg/dL Desirable Triglyceride: [...] (Free>4and<10) Reviewed date:10/18/2025 12:36:55 PM Interpretation: Performing Lab:[facility], [address] [place] [phone] Notes/Report: PSA,Total (Free>4and<10) 0.39 0.00-4.00 ng/mL A [...] Bowers Alinity i Chemiluminescent Microparticle Immunoassay (CMIA) Occult Blood, Stool, Guaiac Reviewed date:10/19/2024 12:30:48 [...] - 150 IM Intramuscular 09/23/2024 Adm inistered Fluarix Quadrivalent - 150 IM Intramuscular 08/08/2025 Adm inistered DECLINED, FLU Unknown 08/22/2014 Refused [...] Status W/U Status Risk Notes Problem Prostatism (87495565) Prostatism (N40.0) Active confirmed Problem 14631278 Essential hypertension (I10) Active confirmed Problem 621729579131 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) Active confirmed Problem 27379266 Arthritis of right hip (M19.90) Active confirmed Problem 161550136 BMI 45.0-49.9, adult (Z68.42) Active confirmed Problem 2599830126339190 Arthritis of saran th knees (M17.0) Active confirmed Problem 39299064 Fasciculations o f muscle (R25.3) Active confirmed Vital Signs Blood pressure diastolic 90 mm Hg 08/08/2025 asad ght is down 4 pounds since 04-19-25 Height 72 in 08/08/2025 weight is down 4 pounds since 04-19-25 Blood pressure systolic 172 mm Hg 08/08/2025 weig ht is down 4 pounds since 04-19-25 Weight 346 lbs 08/08/2025 weight is down 4 pounds since 04-19-25 BMI 46.92 kg/m2 08/08/2025 weight is down 4 pounds since 04-19-25 Encounters Encounter Location Date Provider Diagnosis Arnaud Lynn MD [address] [place] [id number] 04/12/2025 Arnaud Lynn Essential hypertensi on I10 Arnaud Lynn MD [address] [place] [id number] 10/18/2025 Arnaud Lynn Blood tests for routine general physical examination Z00.00 ; Essential hypertension I10 and Prostatism N40.0 Arnaud Lynn MD [address] [place] [id number] 10/19/2024 Arnaud Lynn Essential hypertensi on I10 ; Annual physical exam Z00.00 ; BMI 45.0-49.9, adult Z68.42 ; Fasciculations of muscle R25.3 ; Hip pain, left M25.552 ; Wheezing R06.2 ; Colon cancer screening Z12.11 and Depression screening Z13.31 Arnaud Lynn MD [address] [place] [id number] 04/19/2025 Arnaud Lynn Nocturia R35.1 and Essential hypertension I10 Arnaud Lynn MD [address] [place] [id number] 08/08/2025 Arnaud Lynn Essential hypertensi on I10 ; Fasciculations of muscle R25.3 ; Prostatism N40.0 ; BMI 45.0-49.9, adult Z68.42 and Encounter for administration of vaccine Z23 Assessments Encounter Date Diagnosis (ICD Code) Assessment Notes Treatment Notes Treatment Clinical Notes Section Notes 04/12/2025 Essential hypertension (ICD-10 - I10) 10/18/2025 Blood tests for routine general physical examination (ICD-10 - Z00.00) 10/19/2024 Essential hypertension (ICD-10 - I10) well controlled/ order given to patient, will continue current regiment 10/19/2024 Annual physical exam (ICD-10 - Z00.00) labs reviewed and discussed with patient 04/19/2025 Nocturia (ICD-10 - R35.1) patient verbalized undrstanding ofmedication and directions for use 08/08/2025 Essential hypertension (ICD-10 - I10) doing well 08/08/2025 Fasciculations of muscle (ICD-10 - R25.3) has resolved 10/18/2025 Essential hypertension (ICD-10 - I10) 10/19/2024 BMI 45.0-49.9, adult (ICD-10 - Z68.42) not dieting, advised to diet 04/19/2025 Essential hypertension (ICD-10 - I10) stable, will continue current regiment 08/08/2025 Prostatism (ICD-10 - N40.0) 10/18/2025 Prostatism (ICD-10 - N40.0) 10/19/2024 Fasciculations of muscle (ICD-10 - R25.3) has resolved after surgery 08/08/2025 BMI 45.0-49.9, adult (ICD-10 - Z68.42) needs to lose weigh 10/19/2024 Hip pain, left (ICD-10 - M25.552) pending diagnostic testing 08/08/2025 Encounter for administration of vaccine (ICD-10 - Z23) regular flu vaccine administered 10/19/2024 Wheezing (ICD-10 - R06.2) doesn't want an inhaler at present 10/19/2024 Colon cancer screening (ICD-10 - Z12.11) guaiac negative 10/19/2024 Depression screening (ICD-10 - Z13.31) negative screen Plan Of Treatment Pending Test Test Name Order Date MRI CERVICAL SPINE NO CONTRAST 2 [facility] [place]. Panel Fast 5 Glucose Fasting 04/19/2025 XR hip LT min 2V 10/19/2024 UA ClnCatch+Micro w/rflx Cult 10/18/2025 Future Test Test Name Order Date US SOFT TISSUE 06/15/2020 Next Appt Details Provider Name:Arnaud Dela Cruz ier, 10/27/2025 09:30:00 AM, [address] [facility], [address], [place], [place], [id number], Insurance Providers Payer Name Payer Address Payer Phone Subscriber Number Group Number Insured Name Patient Relationship to Insured Coverage Start Date Coverage End Date [facility] [address] [facility] [address] [place] [phone] [id number] Portillo Valladares Self - patient is the insured Medical (General) History Medical History History ICD Code Refuses flu shot1-7-13 lymph biopsy. had flow studi es [address] adams at [facility]. no abnormality but not many cells Colonoscopy done 04/21/[address] Nix - repeat 6 to 12 months; Colonoscopy done 10/29/[address] Nix - repeat 10 years Surgical History Surgery Date(Month/Year) Rt total hip arthroplasty 05/2011
== END 2025-10-18 10:46 | disposition home or self-care (01) ==
LOC: HO.LNP 10:45
PROVIDERS: Visit Provider Internal Medicine
DX: Z00.00 Encounter for general adult medical examination without abnormal findings (principal); Z12.5 Encounter for screening for malignant neoplasm of prostate; N40.0 Benign prostatic hyperplasia without lower urinary tract symptoms; I10 Essential (primary) hypertension
CPT/HCPCS: 80053; 80061; 81001; 84153; 85025